=== PATIENT | male | born 1955 | race Caucasian/White ===

== ENCOUNTER 2016-09-15 15:00 | Emergency (ER) | payer MEDICAID ==
[2016-09-15 15:09] VITALS: BP 128/92; PULSE 84; RESP 20; TEMP 97.9; O2SAT 95
== END 2016-09-15 15:30 | disposition left against medical advice (07) ==
DX: Z53.21 Procedure and treatment not carried out due to patient leaving prior to being seen by health care provider (principal)

== ENCOUNTER 2016-09-16 14:41 | Emergency (ER) | payer MEDICAID ==
[2016-09-16 14:46] VITALS: RESP 18
--- NOTE | 2016-09-16 14:47 | EDPHY ---
H & P Stated Complaint: r lower tooth pain/jaw pain Time Seen by Provider: 09/16/16 14:47 - Personal History Current Tetanus/Diphtheria Vaccine: Yes - Medical/Surgical History Hx Asthma: No Hx Chronic Respiratory Disease: No Hx Diabetes: No Hx Cardiac Disease: No Hx Renal Disease: No Hx Cirrhosis: No Hx Alcoholism: No Hx HIV/AIDS: No Hx Splenectomy or Spleen Trauma: No Other PMH: hernia - Social History Smoking Status: Never smoked Constitutional: Initial Vital Signs Temperature (C) 36.9 C 09/16/16 14:44 Heart Rate 88 09/16/16 14:44 Respiratory Rate 18 09/16/16 14:44 Blood Pressure 129/90 H 09/16/16 14:44 O2 Sat (%) 94 09/16/16 14:44 O2 Delivery Mode Room Air Allergies/Adverse Reactions: No Known Allergies Allergy (Verified 09/16/16 14:43) Home Medications: Medication Instructions Recorded NK [No Known Home Meds] 09/15/16 Medical Decision Making ED Course/Re-evaluation: CHIEF COMPLAINT: Oral pain, dental abscess. HISTORY OF PRESENT ILLNESS: The patient is a 61-year-old male who presents with right lower dental abscess. He has an appointment with a dentist on Sunday but presents today because the swelling and pain are worsening. He denies fever, chills, vomiting, or other complaints. REVIEW OF SYSTEMS: A 10 point review of systems was performed and is negative with the exception of the elements mentioned in the history of present illness. PHYSICAL EXAM: HR, BP, O2 Sat, RR. Temp noted General Appearance: Alert, well hydrated, appropriate, and non-toxic appearing. Head: Atraumatic without scalp tenderness or obvious injury. Gingival swelling and abscess at right lower back molar . Neurological: Alert, appropriate, and interactive. The patient has normal DTRs and non-focal cranial nerves, motor, sensory, and cerebellar exam. Skin: No rashes, good turgor, no nodules on palpation. Past medical history: Hernia. Past surgical history: N/A. Family history: N/A. Social history: Does not abuse alcohol or drugs. MEDICAL DECISION MAKIN-year-old male presents with an abscess to his lower right back molar. He has a dentist appointment Sunday but presents today for pain control. I have started him on Keflex and Oxy IR. He understands to follow up on Sunday. He is comfortable with this plan. Departure - Departure Disposition: Home, Routine, Self-Care Clinical Impression: Dental abscess Condition: Good Instructions: Dental Abscess (ED) Additional Instructions: Follow up with your dentist on Sunday. Take Keflex as prescribed. Take the pain medication as prescribed. Return to the emergency department for any serious worsening of condition. Referrals: [facility] [Outside] - Follow Up Only If Needed Dental [facility] [Outside] - Follow Up Only If Needed Dental [facility] [Outside] - Follow Up Only If Needed Report Scribed for: William Lombardo Report Scribed by: Arturo Moore Date of Report: 09/16/16 Time of Report: 14:52
[2016-09-16 15:07] VITALS: BP 143/76; PULSE 76; TEMP 98.2; O2SAT 99
== END 2016-09-16 15:07 | disposition home or self-care (01) ==
DX: K04.7 Periapical abscess without sinus (principal)

== ENCOUNTER 2016-10-20 12:10 | Emergency (ER) | payer MEDICAID ==
--- NOTE | 2016-10-20 12:43 | EDPHY ---
H & P Stated Complaint: SKin irritation at base of toes on R foot;?from moisture Time Seen by Provider: 10/20/16 12:42 - Personal History Current Tetanus Diphtheria and Acellular Pertussis (TDAP): Yes - Medical/Surgical History Hx Asthma: No Hx Chronic Respiratory Disease: No Hx Diabetes: No Hx Cardiac Disease: No Hx Renal Disease: No Hx Cirrhosis: No Hx Alcoholism: No Hx HIV/AIDS: No Hx Splenectomy or Spleen Trauma: No Other PMH: hernia. neuropathy. homeless - Social History Smoking Status: Former smoker Constitutional: Initial Vital Signs Temperature (C) 36.6 C 10/20/16 12:13 Heart Rate 72 10/20/16 12:13 Respiratory Rate 16 10/20/16 12:13 Blood Pressure 119/82 H 10/20/16 12:13 O2 Sat (%) 96 10/20/16 12:13 O2 Delivery Mode Room Air Allergies/Adverse Reactions: No Known Allergies Allergy (Verified 10/20/16 12:12) Home Medications: Medication Instructions Recorded Nystatin [Nystat-Rx] 1 each MC BID #0 powder.ea. 10/20/16 Medical Decision Making ED Course/Re-evaluation: CHIEF COMPLAINT: Right toes red and raw HISTORY OF PRESENT ILLNESS: This patient is a 61 year old male complaining of painful red areas at the base of his toes on the plantar aspect onset yesterday. He works in a deli wearing galoshes, and his feet are often in a moist environment. He denies fever, chills, vomiting, or other complaints. REVIEW OF SYSTEMS: A 10 point review of systems was performed and is negative with the exception of the elements mentioned in the history of present illness. PHYSICAL EXAM: HR, BP, O2 Sat, RR. Temp noted General Appearance: Alert, well hydrated, appropriate, and non-toxic appearing. Head: Atraumatic without scalp tenderness or obvious injury Respiratory: No distress Cardiovascular: Regular rate and rhythm. Good capillary refill all extremities. Musculoskeletal: Normal active ROM of all extremities, atraumatic. Neurological: Alert, appropriate, and interactive. Nonfocal neuro exam. Skin: Erythema, scaling, and fissuring to base of plantar aspect of toes on the right foot. Good turgor, no nodules on palpation. Past medical history: Hernia Past surgical history: Noncontributory Family history: Noncontributory. Social history: Homeless. Works at [employer]. Does not abuse alcohol or drugs. DIFFERENTIAL DIAGNOSIS: Includes but not limited to tinea pedis, contact dermatitis, friction blisters, trench foot. MEDICAL DECISION MAKIN male presents with erythema, scaling, and fissuring to base of plantar aspect of toes on the right foot. Findings are consistent with athlete's foot. Plan to discharge home in good condition with prescription for Nystatin. He requests a work excuse note as well so he can keep his foot dry and clean as directed. Follow up and return precautions discussed. The patient is comfortable with this plan. Departure - Departure Disposition: Home, Routine, Self-Care Clinical Impression: Athlete's foot on right Condition: Good Instructions: Antifungals (On the skin), Jock Itch (ED) Additional Instructions: 1. Use your antifungal medication as directed. 2. Keep your foot clean and dry as much as possible. Change your socks often. 3. Follow up with your primary care provider for continued evaluation. Case Management: You have an appointment at [facility] on Sunday, October 30 at 10:30. Please call 24 hours in advance if you need to cancel your appointment The address for [facility] is: [address] [place] [id number] Referrals: [facility],. [Clinic] - As per Instructions Jignesh Webster MD [Medical Doctor] - As per Instructions Stand Alone Forms: Work Excuse Prescriptions: Nystatin [Nystat-Rx] 1 each MC BID #0 powder.ea. Report Scribed for: William Lombardo Report Scribed by: Carissa Pierce Date of Report: 10/20/16 Time of Report: 12:46
[2016-10-20 13:50] VITALS: BP 120/70; PULSE 78; RESP 14; TEMP 97.5; O2SAT 97
== END 2016-10-20 13:50 | disposition home or self-care (01) ==
DX: B35.3 Tinea pedis (principal); Z87.891 Personal history of nicotine dependence

== ENCOUNTER 2016-11-20 12:16 | Emergency (ER) | payer MEDICAID ==
[2016-11-20 14:06] VITALS: RESP 18; TEMP 98.1
[2016-11-20] MEDS ORDERED: IPRATROPIUM/ALBUTEROL 3 ML DEYVIAL IH ONE (14:23)
[2016-11-20] MEDS ORDERED: predniSONE 20 MG TAB PO ONE (14:23)
--- NOTE | 2016-11-20 14:25 | EDPHY ---
H & P Time Seen by Provider: 11/20/16 14:17 HPI/ROS: CHIEF COMPLAINT: Cough, shortness of breath HISTORY OF PRESENT ILLNESS: 61-year-old male with a history of chronic bronchitis presents with cough shortness of breath. Onset of a runny nose and mild cough 4 days ago, gradually increasing since then. The cough is productive of whitish phlegm. He has shortness of breath with exertion, not at rest. No fever or chills. No flu vaccination this year. No known history of bronchospasm. REVIEW OF SYSTEMS: Constitutional: No fever, no chills Eyes: No visual changes ENT: No sore throat Cardiac: No chest pain Gastrointestinal: No nausea, no vomiting, no abdominal pain Genitourinary: no dysuria Musculoskeletal: No leg pain or swelling Skin: No rash Neurological: No headache, no weakness Psychiatric: No depression Past Medical/Surgical History: Chronic bronchitis Social History: Recently moved to [place] Smoking Status: Former smoker Physical Exam: General Appearance: Alert, pleasant, well-appearing Eyes: Pupils equal and round, no conjunctival pallor or injection ENT, Mouth: Mucous membranes moist Neck: Normal inspection Respiratory: normal respiratory rate, diffuse expiratory wheezing Cardiovascular: Regular rate and rhythm Gastrointestinal: Abdomen is soft and nontender Neurological: A&O, nonfocal, normal gait Skin: Warm and dry, no rash Extremities: Nontender, no pedal edema Psychiatric: Mood and affect normal Constitutional: Initial Vital Signs Temperature (C) 36.9 C 11/20/16 12:24 Respiratory Rate 22 H 11/20/16 12:24 Blood Pressure 116/79 11/20/16 12:24 O2 Sat (%) 91 L 11/20/16 12:24 O2 Delivery Mode Room Air Allergies/Adverse Reactions: No Known Allergies Allergy (Verified 10/20/16 12:12) Home Medications: Medication Instructions Recorded Albuterol [Proventil Inhaler HFA 2 puffs IH QID PRN #1 mdi 11/20/16 (*)] Doxycycline Hyclate 100 mg PO BID #20 tablet 11/20/16 Mucinex 11/20/16 predniSONE 1 tab PO DAILY #15 tab 11/20/16 Medical Decision Making - Diagnostics Imaging Results: Imaging Impressions Chest X-Ray 11/20/16 13:58 Impression: Right midlung mass versus pneumonia. Recommendation: Short term follow-up chest radiograph in 4 to 6 weeks. If the nodule persists, proceed with CT chest with contrast. Findings discussed with Emergency Department physician, Dr. Marina Mcdaniel, on November 20, 2016 at 1451 hours. ED Course/Re-evaluation: This patient presents with an acute exacerbation of chronic bronchitis. Chest x -ray reveals possible pneumonia. A DuoNeb was given and prednisone 60 mg orally. Oxygen saturation 94% on room air after the DuoNeb and lungs revealed decreased wheezing. A repeat albuterol neb was given. I wrote a prescription for doxycycline. He does not meet SIRS criteria and admission is not indicated in this patient. He greatly prefers to go home. Warning signs discussed. Differential Diagnosis: Differential diagnosis includes though it is not limited to pneumonia, pneumothorax, pulmonary embolism, aortic dissection, pericarditis, acute coronary syndrome. - Data Points Medications Given: Discontinued Medications Albuterol (Proventil Neb) 3 ml IH EDNOW ONE Stop: 11/20/16 15:05 Last Admin: 11/20/16 15:08 Dose: 3 ml Albuterol/Ipratropium (Duoneb) 3 ml IH EDNOW ONE Stop: 11/20/16 14:24 Last Admin: 11/20/16 14:28 Dose: 3 ml Prednisone (Prednisone) 60 mg PO EDNOW ONE Stop: 11/20/16 14:24 Last Admin: 11/20/16 14:28 Dose: 60 mg Departure - Departure Disposition: Home, Routine, Self-Care Clinical Impression: Chronic obstructive pulmonary disease with acute exacerbation Acute bronchitis Qualifiers: Bronchitis organism: unspecified organism Qualified Code(s): J20.9 - Acute bronchitis, unspecified Condition: Good Instructions: Acute Bronchitis (ED), How to Use a Nebulizer (ED) Additional Instructions: Your Chest Xray is abnormal. You need a repeat Xray in 6 weeks. Referrals: Karolina Pizarro MD [Doctor of Osteopathy] - 2-3 days, if not improved Stand Alone Forms: Work Excuse Prescriptions: Albuterol [Proventil Inhaler HFA (*)] 2 puffs IH QID PRN #1 mdi PRN Reason: Short Of Breath/Dyspnea Doxycycline Hyclate 100 mg PO BID #20 tablet predniSONE 1 tab PO DAILY #15 tab
[2016-11-20 14:44] VITALS: BP 156/82; PULSE 91; O2SAT 96
[2016-11-20] MEDS ORDERED: ALBUTEROL 3 ML DEYVIAL IH ONE (15:04)
== END 2016-11-20 15:30 | disposition home or self-care (01) ==
DX: J44.1 Chronic obstructive pulmonary disease with (acute) exacerbation (principal); J20.9 Acute bronchitis, unspecified; Z87.891 Personal history of nicotine dependence

== ENCOUNTER 2018-01-10 06:10 | Inpatient (IN) | payer MEDICAID ==
[2018-01-10] MEDS ORDERED: NS 1,000 ML IV ONE (06:14)
[2018-01-10] MEDS ORDERED: IPRATROPIUM/ALBUTEROL 3 ML DEYVIAL IH ONE ×2 (06:15→19:35)
--- NOTE | 2018-01-10 06:17 | EDPHY ---
H & P Time Seen by Provider: 01/10/18 06:15 HPI/ROS: HPI CHIEF COMPLAINT: Syncope. HISTORY OF PRESENT ILLNESS: 62-year-old male, homeless, residing at the homeless assisted, states that he got hot shower around 2:00 a.m. Got down the shower front, lightheadedness legs when out need a syncopal episode. He struck his chin on the ground. He sustained a horizontally oriented chin laceration. This happened at 2:00 a.m.. It is now 6:15 a.m.. Patient denies any chest pain. Patient complains of coughing and wheezing over the past few days. The cough has gotten worse. He states been coughing with yellow sputum. No fever. Denies chest pain. States he is currently taking also Flomax for BPH. Stay new medication for him. Additionally he has been taking Advair. Past Medical History: BPH Past Surgical History: No recent surgery Social History: denies drugs or alcohol tobacco. Homeless. Family History: Noncontributory ROS REVIEW OF SYSTEMS: 10 Systems were reviewed and negative with the exception of the elements mentioned in the history of present illness. Exam Constitutional nontoxic no acute distress, triage nursing summary reviewed, vital signs reviewed, awake/alert. Eyes normal conjunctivae and sclera, EOMI, PERRLA. HENT face: Horizontal chin laceration. Old dry blood present. Normal bite. No malocclusion. normal inspection, atraumatic, moist mucus membranes, no epistaxis, neck supple/ no meningismus, no raccoon eyes. Respiratory bronchitis on exam with diffuse wheezing and a bronchitic sounding cough. Cardiovascular rate normal, regular rhythm, no murmur, no edema, distal pulses normal. Gastrointestinal soft, non-tender, no rebound, no guarding, normal bowel sounds, no distension, no pulsatile mass. Genitourinary no CVA tenderness. Musculoskeletal no midline vertebral tenderness, full range of motion, no calf swelling, no tenderness of extremities, no meningismus, good pulses, neurovascularly intact. Skin pink, warm, & dry, no rash, skin atraumatic. Neurologic awake, alert and oriented x 3, AAOx3, moves all 4 extremities equally, motor intact, sensory intact, CN II-XII intact, normal cerebellar, normal vision, normal speech. Psychiatric normal mood/affect. Heme/Lymph/Immune no lymphadenopathy. Differential Diagnosis: Includes but is not limited to in a particular order dehydration, cardiac arrhythmia, pneumonia, electrolyte disturbance, infection, sepsis ACS Medical Decision Making: Plan for this patient IV establishment IV fluid bolus , DuoNeb breathing treatment, EKG, troponin, chest x-ray, electrolytes and re- evaluate. Re-evaluation: EKG interpretation by me on record in [employer] system. Impression time of EKG 6:19 a.m., sinus rhythm rate of 92 Q-waves V1 V2 V3. No ST elevation no ST depression no prolonged intervals. EKG was performed due to syncope. Chest x-ray reviewed this shows a right-sided pneumonia. Dense infiltrate. IV Levaquin has been ordered for this patient. Blood cultures ordered. Plan for hospital admission. 0646: Consult the hospitalist service Dr. Baker, Agrees to admit. Chest x-ray reviewed shows a right lung solid consolidation circular in pattern. When I compare this to his old EKG 14 months prior it is in the exact same location but much bigger. I question if this is a mass. Patient does have a remote smoking history. Plan for CT of the chest to rule out mass or postobstructive pneumonia. The patient has a white count elevated 15,000. Blood cultures have been pulled. IV Levaquin ordered. CT scan chest ordered pending. Hospitalist service consult for admission Troponin 0.00. Patient has a horizontally oriented 4 cm chin laceration. This was copiously cleaned and irrigated. No foreign bodies or debris visualized. Laceration Repair Procedure: Verbal Consent was obtained, Under sterile conditions, The patient had lidocaine with epinephrine used approximately 5ccs to local anesthetize the 4 cm horizontally oriented chin laceration Laceration. The wound was copiously irrigated with sterile fluid, the wound was explored for foreign bodies there were none visualized, the wound was explored with a sterile glove to the base. There are no deep structures involved, including no arterial injury. THREE 6.O PROLENE interrupted Sutures were placed in this patient's laceration. He had good close approximation of the wound edges. He Tolerated this well. Patient understands the sutures will need to be removed in 7 days. Source: Patient, EMS - Medical/Surgical History Hx Asthma: No Hx Chronic Respiratory Disease: No Hx Diabetes: No Hx Cardiac Disease: No Hx Renal Disease: No Hx Cirrhosis: No Hx Alcoholism: No Hx HIV/AIDS: No Hx Splenectomy or Spleen Trauma: No Other PMH: hernia. neuropathy. bronchitis - Social History Smoking Status: Former smoker Constitutional: Initial Vital Signs Temperature (C) 36.7 C 01/10/18 06:16 Heart Rate 94 01/10/18 06:16 Respiratory Rate 16 01/10/18 06:16 Blood Pressure 103/78 01/10/18 06:16 O2 Sat (%) 94 01/10/18 06:16 O2 Delivery Mode Room Air Allergies/Adverse Reactions: No Known Allergies Allergy (Verified 01/10/18 06:18) Home Medications: Medication Instructions Recorded Albuterol [Proventil Inhaler HFA 1 - 2 puffs IH Q4H #1 mdi 01/10/18 (*)] Fluticasone/Salmeter 250/50Mcg 1 puffs IH BID 01/10/18 [Advair 250/50 (*)] Ipratropium/Albuterol [Combivent 1 inh IH QID 01/10/18 Respimat Inhal [place](*)] Tamsulosin HCl [Flomax 0.4 MG (*)] 0.4 mg PO HS 01/10/18 Medical Decision Making - Data Points Laboratory Results: Laboratory Results 01/11/18 04:20 01/10/18 06:28 Medications Given: Acetaminophen (Tylenol) 650 mg PO Q4 PRN PRN Reason: Pain, Mild/Fever, Can Take PO Stop: 07/09/18 11:51 Last Admin: 01/11/18 08:17 Dose: 650 mg Albuterol/Ipratropium (Duoneb) 3 ml IH Q6 [facility] Stop: 07/09/18 11:59 Last Admin: 01/14/18 18:34 Dose: Not Given Azithromycin (Zithromax) 500 mg PO DAILY [facility] PRN Reason: Protocol Stop: 02/10/18 08:59 Last Admin: 01/14/18 08:02 Dose: 500 mg Enoxaparin Sodium (Lovenox) 40 mg SC DAILY [facility] Stop: 07/11/18 08:59 Last Admin: 01/14/18 08:02 Dose: Not Given Ipratropium [place] (Atrovent 0.03% Nasal) 2 sprays [place] BID [facility] Stop: 07/09/18 21:14 Last Admin: 01/14/18 08:03 Dose: 2 sprays Levothyroxine Sodium (Synthroid) 75 mcg PO DAILY AT 6AM [facility] Stop: 07/12/18 05:59 Last Admin: 01/14/18 06:06 Dose: 75 mcg Fluticasone/Salmeterol (Advair) 1 puffs IH BID [facility] Stop: 07/09/18 20:59 Last Admin: 01/14/18 08:03 Dose: 1 puffs Tamsulosin HCl (Flomax) 0.4 mg PO HS [facility] Stop: 07/09/18 20:59 Last Admin: 01/13/18 22:05 Dose: 0.4 mg Tramadol HCl (Ultram) 50 mg PO Q6HRS PRN PRN Reason: Pain, Moderate Able to Take PO Stop: 07/09/18 11:51 Last Admin: 01/13/18 23:25 Dose: 50 mg Zolpidem Tartrate (Ambien) 5 mg PO HS PRN PRN Reason: Sleep/Insomnia Stop: 07/10/18 22:39 Last Admin: 01/13/18 23:26 Dose: 5 mg Discontinued Medications Albuterol (Proventil Neb) 3 ml IH ONCALL ONE Stop: 01/11/18 13:26 Last Admin: 01/11/18 14:05 Dose: Not Given Albuterol/Ipratropium (Duoneb) 3 ml IH EDNOW ONE Stop: 01/10/18 06:16 Last Admin: 01/10/18 06:29 Dose: 3 ml Albuterol/Ipratropium (Duoneb) 3 ml IH ONCE ONE Stop: 01/10/18 19:36 Last Admin: 01/10/18 20:18 Dose: 3 ml Sodium Chloride (Ns) 1,000 mls @ 0 mls/hr IV EDNOW ONE; Wide Open PRN Reason: Protocol Stop: 01/10/18 06:15 Last Admin: 01/10/18 06:27 Dose: 1,000 mls Levofloxacin/Dextrose (Levaquin 750 Mg (Premix)) 150 mls @ 100 mls/hr IV EDNOW ONE PRN Reason: Protocol Stop: 01/10/18 08:08 Last Admin: 01/10/18 07:31 Dose: 150 mls Sodium Chloride (Ns) 1,000 mls @ 100 mls/hr IV CONT [facility] Stop: 07/09/18 11:59 Last Admin: 01/11/18 08:19 Dose: 1,000 mls Sodium Chloride (Ns) 500 mls @ 25 mls/hr IV ONCALL ONE Stop: 01/12/18 09:23 Last Admin: 01/11/18 13:38 Dose: 500 mls Lorazepam (Ativan) 1 mg PO ONCE ONE Stop: 01/11/18 10:23 Last Admin: 01/13/18 10:56 Dose: 1 mg Lorazepam (Ativan) 1 mg PO ONCE ONE Stop: 01/13/18 10:16 Last Admin: 01/13/18 10:30 Dose: 1 mg Point of Care Test Results: Chemistry 01/10/18 06:32 POC Troponin I 0.00 ng/mL ng/mL (0.00-0.08) Departure - Departure Disposition: [facility] Inpatient Acute Clinical Impression: Bronchitis, Chin laceration Syncope Qualifiers: Syncope type: unspecified Qualified Code(s): R55 - Syncope and collapse Pneumonia Qualifiers: Pneumonia type: due to unspecified organism Laterality: right Lung location: middle lobe of lung Qualified Code(s): J18.1 - Lobar pneumonia, unspecified organism Condition: Good
[2018-01-10 06:36] LABS: PLATELET COUNT 375 10^3/uL (150-400)
[2018-01-10] MEDS ORDERED: IOPAMIDOL (ISOVUE 370) 100 ML BTL IV ONE (06:53)
[2018-01-10] MEDS ORDERED: ONDANSETRON 4 MG/2 ML VIAL IVP PRN (11:52)
[2018-01-10] MEDS ORDERED: IPRATROPIUM/ALBUTEROL 4GM MDI IH SCH (12:00)
[2018-01-10] MEDS: NS 1,000 ML IV SCH (12:27)
--- NOTE | 2018-01-10 12:32 | CPEKG ---
Test Reason : OPEN Blood Pressure : / mmHG Vent. Rate : 092 BPM Atrial Rate : 092 BPM P-R Int : 187 ms QRS Dur : 081 ms QT Int : 339 ms P-R-T Axes : 071 084 057 degrees QTc Int : 420 ms Sinus rhythm Probable left atrial enlargement Borderline right axis deviation Anteroseptal infarct, old Confirmed by Mychal Vivar ([id number]) on 01/10/2018 12:32:36 PM Referred By: Confirmed By:Mychal Vivar
--- NOTE | 2018-01-10 12:33 | ASMTCMCOM ---
CM Note CM Note Notes: Chart reviewed fo discharge planning purposes. 62 year old male admitted via ED after fall and laceration of his chin. He reports he has had increasing cough with yellow sputum and suffered a syncopal episode resulting in his fall and subsequent chin laceration. Per CXR, suspicious mass revealed. CT of chest for further eval. Results pending. He currently resides at the half-way. CM to follow for needs. Plan: TBD Date Signed: 01/10/2018 12:33 PM Electronically Signed By:Haley Terrell RN
--- NOTE | 2018-01-10 12:47 | GHP ---
DATE OF ADMISSION: 01/10/2018 CHIEF COMPLAINT: Shortness of breath and syncope. HISTORY: The patient is a 62-year-old male, who has felt short of breath for the last couple of week s. He saw his primary care doctor who started Advair. One week ago he developed a cough, which is p roductive of yellow sputum, as well as wheezing. Yesterday afternoon he started to feel a little diz zy. He went to bed, but woke up in the middle of the night not feeling great and decided to take a [place] [facility], about 2 o'clock in the morning. While in the shower, he got extremely ligh theaded and had a big syncopal event with complete loss of consciousness, striking his chin on the gr ound, sustaining a sizable chin laceration. That laceration was repaired in the emergency room with 3 stitches that need to be removed in 7 days. In the emergency room, he was also found to have a rig ht hilar mass with possible metastasis, and he is being admitted for further evaluation. PAST MEDICAL HISTORY: 1. BPH. 2. COPD. 3. Neuropathy. MEDICATIONS: Please see computerized record for full detailed list. ALLERGIES: No known drug allergies. SOCIAL HISTORY: He smoked from age 15 to age 45, one pack per day, but quit 18 years ago. No alcoho l. No drug use. Currently homeless, living in [facility], but hoping to get back into housing. He w as working at [employer] in [place] until October, but he could not keep up with th e pace of work expected of him, and he was fired. He is currently undergoing interviews for employme nt at [employer]. He describes himself as a salesman, but he moved to [place] 3 years ago and thi ngs have not gone well since his relocation. REVIEW OF SYSTEMS: Complete review of systems obtained. Review of systems negative for constitution al, HEENT, GI, pulmonary, cardiovascular, , hematology, skin, endocrine, psych, except for positive s as noted in HPI. FAMILY HISTORY: Mother of lung cancer. Sister of breast cancer. PHYSICAL EXAMINATION: GENERAL: Well-developed, well-nourished male, in no acute distress. VITAL SI GNS: Temperature is 36.4, pulse 100, blood pressure 130/78, saturating 94% on room air. EYES: Norm al conjunctivae. Pupils reactive to light. ENT: Normal ears and nose. Hearing intact. Normal lip s and teeth. Oropharynx moist. NECK: Trachea midline. No thyromegaly. CHEST: Normal respiratory effort. LUNGS: Extensive bilateral wheezing and rhonchi. CARDIOVASCULAR: Regular rhythm. No mur mur. No lower extremity edema. ABDOMEN: Soft, nontender. No hepatosplenomegaly. SKIN: Warm, dry , intact. No rash. MUSCULOSKELETAL: No cyanosis or clubbing. Strength 5/5 upper and lower extremi ties. NEUROLOGIC: Cranial nerves intact. Normal sensation to light touch. PSYCH: Alert and orien kohi x3. Normal affect. Normal judgment. Normal memory. LABORATORY DATA: White count 15.12, hematocrit 40.1, platelets 375, sodium 138, potassium 4.3, chlor nohemy 103, bicarb 24, BUN 14, creatinine 0.8, glucose 155, troponins negative. LFTs are negative. EKG viewed by me. My personal interpretation is normal sinus rhythm with no ST- or T-wave changes. Chest x-ray shows a large right hilar mass. CT angiogram of the chest result is pending. Prelim by Radiology shows a right hilar mass with metas tases. ASSESSMENT/PLAN: 1. Right hilar mass with metastases, suspicious for a lung cancer. This will need biopsy. I think it will be amenable to bronchoscopy for approach. I have consulted Dr. Shady Rockwell. I have also sp jose with Dr. Seals of Oncology to initiate consultation. 2. Chronic obstructive pulmonary disease exacerbation. He is very wheezy at this time, although has good room air saturations and is not in any distress. I will put him on scheduled nebulizers, as we ll as adding azithromycin. I will hold off on steroids because I do not want to interfere with patho logy results on anticipated biopsy. 3. Syncope. I suspect this is hypovolemic and/or vasovagal. Need to also consider compression due to the large hilar mass having a cardiac effect. We will watch him on telemetry and check an echocar diogram. CODE STATUS: Full. ADMISSION STATUS: 1. Will admit to observation. Reevaluate tomorrow regarding ongoing need for hospitalization. 2. DVT prophylaxis. This is ordered to start after biopsies have been obtained. /[id number]/MODL
[2018-01-10] MEDS: IPRATROPIUM/ALBUTEROL 3 ML DEYVIAL IH SCH ×2 (15:03→15:39)
[2018-01-10] MEDS: TAMSULOSIN HCL 0.4 MG CAP PO SCH (20:22)
[2018-01-10] MEDS: FLUTICASONE/SALMETER 250/50MCG DISKUS IH SCH (20:23)
[2018-01-10] MEDS: IPRATROPIUM 0.03% NASAL SPRAY EACHNARE SCH (22:21)
[2018-01-11] MEDS: IPRATROPIUM/ALBUTEROL 3 ML DEYVIAL IH SCH ×5 (04:15→20:39)
[2018-01-11 04:52] LABS: PLATELET COUNT 338 10^3/uL (150-400)
[2018-01-11] MEDS: ACETAMINOPHEN 325 MG TAB PO PRN (08:17)
[2018-01-11] MEDS: AZITHROMYCIN 250 MG TAB PO SCH (08:17)
[2018-01-11] MEDS: FLUTICASONE/SALMETER 250/50MCG DISKUS IH SCH ×2 (08:19→20:40)
[2018-01-11] MEDS: NS 1,000 ML IV SCH (08:19)
[2018-01-11] MEDS: IPRATROPIUM 0.03% NASAL SPRAY EACHNARE SCH ×2 (08:20→23:47)
[2018-01-11] MEDS ORDERED: LORazepam 1 MG TAB PO ONE (10:22)
--- NOTE | 2018-01-11 10:29 | PDCONSULT ---
Manager Hair Note: Requesting provider: Dr. Estefany Bray Reason for consultation: Lung mass HPI: Clarence is a 62 yo male with a previous history of smoking who was admitted for diagnostic work up of a lung mass. He states that he's had breathing trouble for over a year. He was seeing a physician down in [place] and was given inhalers for presumed COPD. Interestingly, back in November of 2016 he presented with cough and chest pain and was noted to have a right lung mass on a simple CXR. He was seen by Dr. Ortega in pulmonary who recommended a CT of the chest to be done. He states that his SOB continued to worsen over this period of time. He says around 1 week ago he was in the shower and experienced a syncopal episode where he fell and hit his chin and required stitches. He continues to have worsening intermittent headaches. No focal neurologic symptoms. He has had a 15lb weight loss which he attributes to poor nutrition at the homeless longterm. PM/S History: Hx of lung mass BPH COPD Neuropathy SH: He quit smoking 18 years ago but has a 30 pack year history total. No alcohol or drugs. Currently homeless and lost his job working at the [employer]. Never . No family locally. FH: Mother with breast cancer in her 60's then lung cancer a few years later. Sister with breast cancer in her 40's. Allergies: NKDA ROS: A 12 point ROS was obtained and otherwise negative. Meds: Reviewed in the EMR Physical exam: Temp Pulse Resp BP Pulse Ox 36.5 C 91 18 109/72 90 L 01/11/18 11:33 01/11/18 11:33 01/11/18 11:33 01/11/18 11:33 01/11/18 11:33 General: Pleasant, conversant, NAD Neuro: CN2-12 intact, motor intact in BL upper and lower ext CV: RRR no m/g/r Pulm: Crackles at the right base, otherwise clear Abd: Soft, nt, nd, bs+ Ext: No c/c/e Skin: no skin lesions Psych: Appropriate affect Lymph: No LAD WBC 8.99 10^3/uL (3.80-9.50) 01/11/18 04:20 RBC 4.06 10^6/uL (4.40-6.38) L 01/11/18 04:20 Hgb 11.9 g/dL (13.7-17.5) L 01/11/18 04:20 Hct 35.7 % (40.0-51.0) L 01/11/18 04:20 MCV 87.9 fL (81.5-99.8) 01/11/18 04:20 MCH 29.3 pg (27.9-34.1) 01/11/18 04:20 MCHC 33.3 g/dL (32.4-36.7) 01/11/18 04:20 RDW 14.1 % (11.5-15.2) 01/11/18 04:20 Plt Count 338 10^3/uL (150-400) 01/11/18 04:20 MPV 9.2 fL (8.7-11.7) 01/11/18 04:20 Neut % (Auto) 70.1 % (39.3-74.2) 01/11/18 04:20 Lymph % (Auto) 18.2 % (15.0-45.0) 01/11/18 04:20 [place] % (Auto) 7.7 % (4.5-13.0) 01/11/18 04:20 Eos % (Auto) 3.2 % (0.6-7.6) 01/11/18 04:20 Baso % (Auto) 0.4 % (0.3-1.7) 01/11/18 04:20 Nucleat RBC Rel Count 0.0 % (0.0-0.2) 01/11/18 04:20 Absolute Neuts (auto) 6.29 10^3/uL (1.70-6.50) 01/11/18 04:20 Absolute Lymphs (auto) 1.64 10^3/uL (1.00-3.00) 01/11/18 04:20 Absolute Monos (auto) 0.69 10^3/uL (0.30-0.80) 01/11/18 04:20 Absolute Eos (auto) 0.29 10^3/uL (0.03-0.40) 01/11/18 04:20 Absolute Basos (auto) 0.04 10^3/uL (0.02-0.10) 01/11/18 04:20 Absolute Nucleated RBC 0.00 10^3/uL (0-0.01) 01/11/18 04:20 Immature Gran % 0.4 % (0.0-1.1) 01/11/18 04:20 Immature Gran # 0.04 10^3/uL (0.00-0.10) 01/11/18 04:20 Sodium 138 mEq/L (135-145) 01/10/18 06:28 Potassium 4.3 mEq/L (3.3-5.0) 01/10/18 06:28 Chloride 103 mEq/L (97-110) 01/10/18 06:28 Carbon Dioxide 24 mEq/l (22-31) 01/10/18 06:28 Anion Gap 11 mEq/L (6-14) 01/10/18 06:28 BUN 14 mg/dL (7-23) 01/10/18 06:28 Creatinine 0.8 mg/dL (0.7-1.3) 01/10/18 06:28 Estimated GFR > 60 01/10/18 06:28 Glucose 155 mg/dL (70-100) H 01/10/18 06:28 Calcium 9.3 mg/dL (8.5-10.4) 01/10/18 06:28 Magnesium 2.0 mg/dL (1.6-2.3) 01/10/18 06:28 Total Bilirubin 0.8 mg/dL (0.1-1.4) 01/10/18 06:28 Conjugated Bilirubin 0.2 mg/dL (0.0-0.5) 01/10/18 06:28 Unconjugated Bilirubin 0.6 mg/dL (0.0-1.1) 01/10/18 06:28 AST 21 IU/L (17-59) 01/10/18 06:28 ALT 37 IU/L (21-72) 01/10/18 06:28 Alkaline Phosphatase 102 IU/L (38-126) 01/10/18 06:28 POC Troponin I 0.00 ng/mL (0.00-0.08) 01/10/18 06:32 NT-Pro-B Natriuret Pep 32 pg/mL (0-125) 01/10/18 06:28 Total Protein 7.4 g/dL (6.3-8.2) 01/10/18 06:28 Albumin 3.9 g/dL (3.5-5.0) 01/10/18 06:28 TSH 16.000 uIU/mL (0.465-4.680) H 01/11/18 04:20 01/10/2018 CT chest w contrast: 8.1x5.9x6.3cm right hilater mass with narrowsing of the bronchus intermedius with likely postobstructive pneumonitis. Slightly enlarged subcarnial LN. There is a 2.4cmx0.9cm Left upper lobe mass, also a 1.5x1.7cm left middle lobe nodule. Assessment and plan: Clarence is a 62 yo male with a 30 pack year smoking history admitted for workup of a lung mass. 1. Lung mass: He has a fairly large right sided lung mass with regional adenopathy alongside concern for contralateral metastasis. It has been a little over 1 year from initial presentation to work up. I suspect he has underlying metastatic cancer in the contralateral lung. He needs full staging with MR brain and PET/CT. He has stated he wants to now move out of [place] due to concern of the altitude. I have encouraged him to undergo diagnostic work-up first to get his final stage before he does this. He will need his biopsy sent for [facility] testing which includes a multi-gene panel for common tractor driver mutations, PDL1 and tumor mutational burden. -I have ordered MR brain -Bx per pulm today -Will need outpatient f/u prior to discharge. 2. COPD: On inhalers. No oxygen requirements. 3. Social situation: Currently in a homeless longterm. SW seeing. All questions were answered. He voices his understanding of the plan.
--- NOTE | 2018-01-11 10:40 | ASMTCMCOM ---
CM Note CM Note Notes: Oncology consulting, pt to have liver biopsy and MRI. Pt in reserved bed program at [facility], his case mngr there is Mehdi. Pt states he "would rather not" d/c back to [facility], pt does not elaborate any specifics as to why. When asked if he has friends/family to stay with pt states he does not know at this time. Pt does not know where he will d/c to, stating Sunday he will resume discussion with a local rabbi to see if the rabbi has any housing options. Pt likely not to qualify for any respite but CM will follow for d/c needs. Date Signed: 01/11/2018 10:39 AM Electronically Signed By:SONY Rincon
--- NOTE | 2018-01-11 10:46 | ECHO ---
[email or web address] [address] [address] Main: [phone] Fax: Transthoracic Echocardiogram Name: MENDY WORTHY MR#: [id number] Study Date: 01/11/2018 Study Time: 09:31 AM Date of : 1955 Age: 62 year(s) Height: 160 cm (63 in.) Weight: 58.06 kg (128 lb.) BSA: 1.6 m2 Gender: Male Examination: Echo Indication: Cardiac: syncope Image Quality: Technically Difficult Contrast: Requested by: Estefany Bray BP: 116 mmHg/68 mmHg Heart Rate: Rhythm: Indication: Cardiac: syncope Procedure Staff Shearing Machine Operator: Julia Marie RDCS Reading Physician: Dexter Gipson MD Requesting Provider: Conclusions: 1)Normal LV size and systolic function with a LVEF of 65%. 2)Trivial TR noted. Unable to accurately assess PA pressures. 3)Either trivial circumferential pericardial effusion vs prominent pericardial fat pad with no tamponade signs. Measurements: Chambers Valvular Assessment AV/MV Valvular Assessment TV/PV Normal Normal Normal Name Value Range Name Value Range Name Value Range Ao Stacia (MM): 2.8 cm (2.2 cm-3.7 AV Vmax: 1.28 m/s (1 m/s-1.7 PV Vmax: 1.07 m/s (0.6 m/s-0.9 cm) m/s) m/s) IVSd (2D): 0.8 cm (0.6 cm-1.1 AV maxP mmHg ( - ) PV PGmax: 5 mmHg ( - ) cm) LVOT Vmax: 0.96 m/s (0.7 m/s-1.1 LVDd (2D): 3.5 cm (4.2 cm-5.9 m/s) cm) SHAREE (Vmax): 2.1 cm2 ( - ) LVDs (2D): 2.4 cm (2.1 cm-4 MV E Vmax: 0.95 m/s ( - ) cm) MV A Vmax: 0.73 m/s ( - ) LVPWd (2D): 0.8 cm (0.6 cm-1 MV E/A: 1.30 ( - ) cm) LVOTd 1.9 cm 1.9 cm mm LVEF (BP): 65 % (>=55 %) RVDd(2D): 2.8 cm (1.9 cm-3.8 cmmm) Continued Measurements: Chambers Valvular Assessment AV/MV Name Value Name Value LADs Lon.6 cm MV DecTime: 176 m/s LA Area: 10.6 cm2 MV E' Septal: 0.08 m/s Patient: MENDY WORTHY Study Date: 01/11/2018 Page 1 of 2 09:31 AM TAPSE: 2.0 cm MV E/E' Septal: 11.90 RA Area: 9.0 cm2 MV E/E' Lateral: 7.20 Findings: Left Ventricle: Normal size left ventricle. No LV hypertrophy. Normal global systolic LV function. EF is 65 %. Normal diastolic LV function. Cannot rule out wall motion abnormalities due to suboptimal acoustic window and foreshortened apical view. Right Ventricle: Normal size right ventricle. Normal RV function. Left Atrium: The left atrium is normal in size. LA index 18.8 ml/m2.. Right Atrium: The right atrium is normal in size. Mitral Valve: The mitral valve is normal in appearance and function. No mitral stenosis is present. Aortic Valve: The aortic valve is tri-leaflet and functions normally. There is no significant aortic valve regurgitation. No aortic valve stenosis is present. Tricuspid Valve: The tricuspid valve is normal in appearance and function. Trivial tricuspid valve regurgitation. Pulmonary artery pressure is not obtained due to inadequate TR jet. Pulmonic Valve: Pulmonary valve not well visualized. There is no pulmonic regurgitation seen. Aorta: The aorta is normal. Normal size aortic root measuring 2.8 cm. IVC: Normal size and course of the IVC. Pericardium: Trivial pericardial effusion. vs pericardial fat pad. No tamponade physiology noted. (No Signature Object) Patient: MENDY WORTHY Study Date: 01/11/2018 Page 2 of 2 09:31 AM [id number]
[2018-01-11] MEDS ORDERED: NS 500 ML IV ONE (13:24)
[2018-01-11] MEDS ORDERED: ALBUTEROL 3 ML DEYVIAL IH ONE (13:25)
[2018-01-11] MEDS ORDERED: LIDOCAINE 1% 2 ML INJ ID PRN (13:25)
[2018-01-11] MEDS ORDERED: EPINEPHrine 1 MG/10 ML SYR IVP ONE (14:17)
[2018-01-11] MEDS ORDERED: LIDOCAINE 1% 300 MG/30 ML SDV ONE (14:17)
[2018-01-11] MEDS ORDERED: BENZOCAINE UNIT DOSE SPRAY HURRICAINE MM ONE (14:17)
[2018-01-11] MEDS ORDERED: fentaNYL 100 MCG/2 ML INJ ONE (14:21)
[2018-01-11] MEDS ORDERED: MIDAZOLAM 2 MG/2 ML VIAL ONE (14:21)
--- NOTE | 2018-01-11 14:39 | HOSPPROG ---
Hospitalist Progress Note Assessment/Plan: * COPD exacerbation -nebs + azithro for anti-inflammatory effect -hold off on steroids as don't want to distort path for lung biopsy * Lung mass with mets -bronch with biopsy today -MRI brain pending -outpatient follow-up with onc - Dr. Seals -needs outpatient PET/CT * Viral bronchitis - rhinovirus * Elevated TSH -check FT4 * Syncope -suspect vasovagal vs. hypovolemic -ECHO okay * Chin laceration -remove sutures 7 days Subjective: No new complaints. Objective: Vital Signs Temp Pulse Resp BP Pulse Ox 36.5 C 91 18 109/72 90 L 01/11/18 11:33 01/11/18 11:33 01/11/18 11:33 01/11/18 11:33 01/11/18 11:33 Microbiology 01/10/18 15:00 Respiratory Panel (PCR) - Final Nasal, Sinus - Swab Human Rhinovirus/Enterovirus Laboratory Results 01/11/18 04:20 01/10/18 01/11/18 01/12/18 05:59 05:59 05:59 Intake Total 1650 Balance 1650 ECHO - normal d/w Dr. Rockwell and DR. Seals regarding planned work-up - Physical Exam Constitutional: no apparent distress, appears nourished, not in pain Cardiovascular: regular rate and rhythym, no murmur, rub, or gallop Respiratory: no respiratory distress, no rales or rhonchi, clear to auscultation , other (much better today, much less wheezing) Gastrointestinal: normoactive bowel sounds, soft, non-tender abdomen, no palpable masses Skin: no rashes or abrasions, no fluctuance, no induration Neurologic: AAOx3, sensation intact bilaterally Psychiatric: interacting appropriately, not anxious, not encephalopathic, thought process linear ICD10 Worksheet Patient Problems: Problems Problem Status Onset Bronchitis Acute Chin laceration Acute Pneumonia Acute Syncope Acute
--- NOTE | 2018-01-11 16:39 | GPN ---
PROCEDURE PERFORMED: Bronchoscopy. REASON FOR PROCEDURE: Lung mass, suspect lung cancer in this previous smoker. PROCEDURE: The procedure was done in the endoscopy unit. N95 masks were worn, although there was no suspicion of a significant respiratory airborne infectious pathogen. Informed consent was obtained from the patient. Appropriate time-out was performed. Conscious sedation included 4 mg of Versed an d 100 mcg of fentanyl. Topical anesthesia included 4 mL of 4% to the oropharynx and approximately 25 mL of 1% to the trachea and lower tracheobronchial tree. 2 cc of epinephrine was used for prophylax is of potential bleeding. The fiberoptic bronchoscope was passed via a bite block orally in the larynx. The vocal cords were i dentified. The right vocal cord was not paralyzed, but appeared to be sluggish. The bronchoscope wa s advanced into the trachea and into the lower tracheobronchial tree bilaterally. All areas were obs erved to the segmental level at least. The trachea and left side were normal. The right side was ab normal. There was erythema, edema, and abnormal tissue in the bronchus intermedius and right upper l obe and right lower lobe. The right middle lobe appeared more normal. The superior segment of the r ight lower lobe appeared to be occluded and it was difficult to enter this with instruments. The muc osal surface in that area extending down in the right lower lobe was distinctly abnormal as well. Th e right upper lobe carrie was distended, erythematous and edematous with possible abnormal tissue not ed in that area. Washes, brushes and biopsies were obtained. Washes were obtained from the right up per lobe and right lower lobe/bronchus intermedius and combined. Bronchial brush samples were obtain ed from the right lower lobe. Biopsies were obtained from the right lower lobe with 1 biopsy obtaine d at the carrie of the right upper lobe. With this last single biopsy, there was significant bleedin g. This was observed and suction applied and controlled. Bleeding appeared to have slowed significa ntly and was minimal by the end of the procedure. The patient had significant coughing toward the en d of the procedure and was bringing up some bloody secretions. Vital signs and oxygen saturations on supplemental oxygen remained normal throughout the procedure. There were no complications. IMPRESSION: Distinctly abnormal tissue on the right side, as described above. This is consistent wi th the findings on CT scan and likely represents malignancy, with major involvement of the right uppe r lobe, the superior segment of the right lower lobe, the bronchus intermedius, and more distal right lower lobe main bronchus. The wash samples for cytologies and cultures, the endobronchial brush biopsy sample, and the endobron chial forceps biopsy samples were all sent to the laboratory. /[id number]/MODL
--- NOTE | 2018-01-11 17:10 | GCON ---
PULMONARY CONSULTATION DATE OF CONSULTATION: 01/11/2018 REASON FOR CONSULTATION: Lung mass in a previous smoker. HISTORY OF PRESENT ILLNESS: The patient is a 62-year-old homeless [facility]. Over the last several weeks he has had increasing pulmonary congestion and shortness of breath. He was seen at [facility], I believe , and started on Advair and albuterol. [facility] the [facility], he got up and felt dizzy on going to the bathroom and fell. He sustained a chin laceration. He thus presented to the emergency room. They noted him to be congested. A CT scan of the chest was done which showed a large right hilar mass with bronchial congestion and areas of pulmonary nodularity consistent with possible metastases. The patient was a previous smoker. He states he quit smoking about 18 years ago. He started smoking at the age of 15 and smoked 1 pack of cigarettes per day for about 30 years. He was previously diagnosed with COPD. He saw Dr. Landeros in our office when Dr. Landeros was in [place]. He saw him once in [place] about a year ago. A chest x-ray at that time showed a possible new nodule. CT scan of the chest was requested but the patient did not follow up. PAST MEDICAL HISTORY: Prostatism, COPD. Medications on admission included Flomax, Advair, Combivent Respimat, and albuterol. He is followed at [facility]. SOCIAL HISTORY: The patient is homeless, [facility]. He previously lived in [place] and before that I believe [place] and other states. Significant alcohol and drugs are denied. He has no family in this area, 1 friend. FAMILY HISTORY: Lung cancer in his mother. Breast cancer in a sister. REVIEW OF SYSTEMS: A 10-point review of systems is negative except as mentioned above. He denies known significant weight loss. PHYSICAL EXAMINATION: GENERAL APPEARANCE: Reveals a gentleman who is resting comfortably in bed. He is not currently on nasal oxygen. VITAL SIGNS: Blood pressure is 120/80 with a heart rate of approximately 115. This is regular. Respiratory rate is 20. Saturations on room air in the low 90s. HEENT: Unremarkable for lymphadenopathy or thyromegaly. There is no obvious jugular venous distention. CHEST: Reveals decreased breath sounds bilaterally with fixed wheezes on the right. No rales are appreciated. HEART: Tachycardic. There is a soft systolic murmur, no gallop. ABDOMEN: Soft, nontender. Bowel sounds are present. There is no obvious organomegaly. GENITOURINARY: No Levi catheter is in place. EXTREMITIES: Unremarkable bowl for edema, cords, or tenderness. DATABASE: CT scan of the chest is as noted above, with a large right perihilar mass and compression of airways. Laboratory: White blood cell count is approximately 9000, hematocrit 35, platelets are normal. Metabolic values are all normal with the exception of a mildly elevated glucose at 155. TSH is elevated at 16. ASSESSMENT: 1. Right lung mass. This is highly suspicious and likely is a primary pulmonary malignancy. Further investigation including bronchoscopy and biopsies will be needed. This will be done today. 2. Chronic obstructive pulmonary disease. The patient definitely has this. However, the tumor mass and its affects, including bronchial compression, are playing a significant role in his shortness of breath at this time. He is on bronchodilator therapy. Azithromycin has been added for possible bronchitis. A postobstructive pneumonia cannot be entirely excluded but seems less likely. 3. Homelessness. PLAN AND RECOMMENDATIONS: The patient will be kept n.p.o. for now, and bronchoscopy will be performed. Current medications will be continued except when he is n.p.o. for the procedure. Further plans and recommendations will be made based on the findings on bronchoscopy. Bronchodilator therapies should be continued. The addition of steroids may be of benefit for inflammatory changes associated with his large lung mass and possibly for COPD. Further plans and recommendations will be made based on the results of his progress over the next 12-24 hours. /[id number]/MODL MTDD
[2018-01-11] MEDS: TAMSULOSIN HCL 0.4 MG CAP PO SCH (20:42)
[2018-01-11] MEDS: ZOLPIDEM TARTRATE 5 MG TAB PO PRN (23:48)
[2018-01-12] MEDS: IPRATROPIUM/ALBUTEROL 3 ML DEYVIAL IH SCH ×3 (05:19→16:53)
--- NOTE | 2018-01-12 06:28 | PDMN ---
Medical Necessity Medical necessity: Pt meets INPT criteria per MD as of 01/11/18 and MCG M-100 COPD (LOS >2 MN for ongoing eval/mgmt of COPD exacerbation, lung mass with mets requiring bx, viral bronchitis and syncope).
[2018-01-12] MEDS: ENOXAPARIN 40 MG/0.4 ML SYR SC SCH (08:14)
[2018-01-12] MEDS: AZITHROMYCIN 250 MG TAB PO SCH (08:17)
[2018-01-12] MEDS: FLUTICASONE/SALMETER 250/50MCG DISKUS IH SCH (08:18)
[2018-01-12] MEDS: IPRATROPIUM 0.03% NASAL SPRAY EACHNARE SCH (08:19)
--- NOTE | 2018-01-12 12:01 | HOSPPROG ---
Hospitalist Progress Note Assessment/Plan: 62 yo M w likely lung CA and copd exacerbation COPD exacerbation -nebs + azithro for anti-inflammatory effect -hold off on steroids as don't want to distort path for lung biopsy moving good air today. hold on steroids Lung mass with mets -bronch with biopsy today -MRI brain 01/13 -outpatient follow-up with onc - Dr. Seals -needs outpatient PET/CT Viral bronchitis - rhinovirus Elevated TSH FT4 low- start levothyroxine Syncope -suspect vasovagal vs. hypovolemic -ECHO okay Chin laceration -remove sutures 01/17 Subjective: case d/w dr covignton. wishes to do MRI brain tomorrow Objective: Vital Signs Temp Pulse Resp BP Pulse Ox 36.8 C 106 H 20 118/69 94 01/12/18 11:56 01/12/18 11:56 01/12/18 11:56 01/12/18 11:56 01/12/18 11:56 Microbiology 01/11/18 15:15 Gram Stain - Final Bronchial Washing - Right Lobe Laboratory Results 01/12/18 04:15 01/11/18 01/12/18 01/13/18 05:59 05:59 05:59 Intake Total 400 960 Balance 400 960 - Physical Exam Constitutional: no apparent distress, appears nourished Eyes: PERRL, anicteric sclera Ears, Nose, Mouth, Throat: moist mucous membranes, hearing normal Cardiovascular: regular rate and rhythym, no murmur, rub, or gallop Respiratory: no respiratory distress, no rales or rhonchi Gastrointestinal: normoactive bowel sounds, soft, non-tender abdomen Genitourinary: No rausch in urethra Skin: warm, normal color Musculoskeletal: full muscle strength Neurologic: AAOx3 Psychiatric: interacting appropriately ICD10 Worksheet Patient Problems: Problems Problem Status Onset Bronchitis Acute Chin laceration Acute Pneumonia Acute Syncope Acute
--- NOTE | 2018-01-12 13:07 | SOAPPROG ---
SOAP Progress Note Assessment/Plan: Assessment: 62-year-old previous smoker presenting 01/10 with a lung mass/lung cancer. Lung mass/cancer. Lung cancer present by CT scan appearance an by bronchoscopy be appearance. Extensive involvement of the right lung is present and there are likely intrapulmonary metastases. Pathology from the bronchoscopy yesterday is pending and likely will be back Sunday or Sunday. History of tobacco abuse. COPD/emphysema. Exacerbation difficult to evaluate. Many of his symptoms may be due to bronchial narrowing in compression on the right side. Hypothyroidism. TSH elevated. Synthroid per hospitalist. Homelessness Plan: Continue bronchodilator treatments and azithromycin for usual Z-Inocencio course. Await biopsy results. I do not expect to find anything on cultures but they were sent. He will need to go home on Advair and albuterol. He refuses prednisone. This may be of benefit for decreasing inflammation associated with his extensive right-sided tumor. Oncology has seen the patient. He can follow up both with our office and with Oncology as an outpatient. Discussed with the patient, hospitalist. Subjective: Doing okay this morning. Not requiring oxygen. Still does feel short of breath , inhalers not helping. Had loss a cough with some blood after the bronchoscopy yesterday. Now resolved. Objective: Vital Signs Temp Pulse Resp BP Pulse Ox 36.8 C 106 H 20 118/69 94 01/12/18 11:56 01/12/18 11:56 01/12/18 11:56 01/12/18 11:56 01/12/18 11:56 Microbiology 01/11/18 15:15 Gram Stain - Final Bronchial Washing - Right Lobe Laboratory Results 01/12/18 04:15 01/11/18 01/12/18 01/13/18 05:59 05:59 05:59 Intake Total 400 960 Balance 400 960 Physical Exam - Physical Exam General Appearance: alert, no apparent distress, thin EENT: PERRL/EOMI, other (Not on a nasal cannula: Sats 94%) Neck: normal inspection (No JVD) Respiratory: decreased breath sounds, wheezing (Over right mid/upper lung), prolonged expiration, No lungs clear, No normal breath sounds, No respiratory distress, No rales, No rhonchi Cardiac/Chest: regular rate, rhythm, No gallop Abdomen: normal bowel sounds, non-tender, soft, No organomegaly Skin: normal color, warm/dry Extremities: No pedal edema Neuro/Psych: no motor/sensory deficits, No cognition abnormalities ICD10 Worksheet Patient Problems: Problems Problem Status Onset Bronchitis Acute Chin laceration Acute Pneumonia Acute Syncope Acute
[2018-01-12] MEDS ORDERED: GADOBUTROL 10 ML VIAL IVP ONE (13:08)
--- NOTE | 2018-01-12 14:17 | SOAPPROG ---
SOAP Progress Note Assessment/Plan: Assessment: Clarence is a 62 yo male with a previous history of smoking who was admitted for diagnostic work up of a lung mass. He states that he's had breathing trouble for over a year. He was seeing a physician down in [place] and was given inhalers for presumed COPD. Interestingly, back in November of 2016 he presented with cough and chest pain and was noted to have a right lung mass on a simple CXR. He was seen by Dr. Ortega in pulmonary who recommended a CT of the chest to be done. He states that his SOB continued to worsen over this period of time. He says around 1 week ago he was in the shower and experienced a syncopal episode where he fell and hit his chin and required stitches. He continues to have worsening intermittent headaches. No focal neurologic symptoms. He has had a 15lb weight loss which he attributes to poor nutrition at the homeless correction. He has had his bronchoscopy. Biopsy results probably will not be available until Sunday or Sunday. He has had a few headaches. MRI of his brain will be done on 01/13/18. He is very pessimistic about his chances for treatment and response. I tried to encourage him to wait for all the results (PET/CT, MRI brain, PD-L1, Lung SEQ for biomarker targets). We can then give him a much more realistic assessment of his overall prognosis and chance of response to therapy Plan: Check MRI of the brain when available Check path/biomarkers when available PET/CT as an outpatient Will follow with you. Subjective: He is very pessimistic about treatment options based on his personal experience with family members. Objective: Vital Signs Temp Pulse Resp BP Pulse Ox 36.8 C 106 H 20 118/69 94 01/12/18 11:56 01/12/18 11:56 01/12/18 11:56 01/12/18 11:56 01/12/18 11:56 Microbiology 01/11/18 15:15 Mycobacterial Smear (SOLOMON) - Final Lung - Right Lobe 01/11/18 15:15 Gram Stain - Final Bronchial Washing - Right Lobe Laboratory Results 01/12/18 04:15 01/10/18 01/11/18 01/12/18 23:59 23:59 23:59 Intake Total 400 960 Balance 400 960 Physical Exam - Physical Exam General Appearance: alert, mild distress (during episodes of coughing) Skin: normal color Neuro/Psych: alert, oriented x 3 ICD10 Worksheet Patient Problems: Problems Problem Status Onset Bronchitis Acute Chin laceration Acute Pneumonia Acute Syncope Acute
[2018-01-12] MEDS: TAMSULOSIN HCL 0.4 MG CAP PO SCH (21:33)
[2018-01-13] MEDS: IPRATROPIUM/ALBUTEROL 3 ML DEYVIAL IH SCH ×5 (00:35→19:59)
[2018-01-13] MEDS: IPRATROPIUM 0.03% NASAL SPRAY EACHNARE SCH ×3 (00:43→22:06)
[2018-01-13] MEDS: FLUTICASONE/SALMETER 250/50MCG DISKUS IH SCH ×3 (00:43→20:00)
[2018-01-13] MEDS: traMADol 50 MG TAB PO PRN ×2 (03:39→23:25)
[2018-01-13] MEDS: LEVOTHYROXINE 75 MCG TAB PO SCH (06:20)
[2018-01-13] MEDS: AZITHROMYCIN 250 MG TAB PO SCH (08:30)
[2018-01-13] MEDS: ENOXAPARIN 40 MG/0.4 ML SYR SC SCH (08:31)
[2018-01-13] MEDS ORDERED: LORazepam 1 MG TAB PO ONE (10:15)
[2018-01-13] MEDS ORDERED: GADOBUTROL 10 ML VIAL IVP ONE (11:42)
--- NOTE | 2018-01-13 12:34 | HOSPPROG ---
Hospitalist Progress Note Assessment/Plan: 62 yo M w likely lung CA and copd exacerbation COPD exacerbation -nebs + azithro for anti-inflammatory effect moving good air today. hold on steroids advair Lung mass with mets -bronch with biopsy -MRI brain 01/13 -outpatient follow-up with onc - Dr. Seals -needs outpatient PET/CT Viral bronchitis - rhinovirus Elevated TSH FT4 low- start levothyroxine Syncope -suspect vasovagal vs. hypovolemic -ECHO okay Chin laceration -remove sutures 01/17 Subjective: case d.w dr covington. had brain MRI this AM Objective: Vital Signs Temp Pulse Resp BP Pulse Ox 36.6 C 94 19 127/93 H 93 01/13/18 08:00 01/13/18 08:00 01/13/18 08:00 01/13/18 08:00 01/13/18 08:00 Microbiology 01/11/18 15:15 Gram Stain - Final Bronchial Washing - Right Lobe 01/11/18 15:15 Mycobacterial Smear (SOLOMON) - Final Lung - Right Lobe Laboratory Results 01/12/18 04:15 01/12/18 01/13/18 01/14/18 05:59 05:59 05:59 Intake Total 400 1410 Balance 400 1410 - Physical Exam Constitutional: no apparent distress, appears nourished Eyes: PERRL, anicteric sclera Ears, Nose, Mouth, Throat: moist mucous membranes, hearing normal Cardiovascular: regular rate and rhythym, no murmur, rub, or gallop Respiratory: no respiratory distress, no rales or rhonchi Gastrointestinal: normoactive bowel sounds, soft, non-tender abdomen Genitourinary: no bladder fullness, No rausch in urethra Skin: warm, normal color Musculoskeletal: full muscle strength Neurologic: AAOx3 ICD10 Worksheet Patient Problems: Problems Problem Status Onset Bronchitis Acute Chin laceration Acute Pneumonia Acute Syncope Acute
--- NOTE | 2018-01-13 15:50 | SOAPPROG ---
SOAP Progress Note Assessment/Plan: Assessment: 62-year-old previous smoker presenting 01/10 with a lung mass/lung cancer. Lung mass/cancer. Lung cancer present by CT scan appearance an by bronchoscopy be appearance. Extensive involvement of the right lung is present and there are likely intrapulmonary metastases. Pathology from the bronchoscopy 01/11 is pending and likely will be back Sunday or Sunday. History of tobacco abuse. COPD/emphysema. Exacerbation difficult to evaluate. Many of his symptoms may be due to bronchial narrowing in compression on the right side. Rhino virus may or may not be contributing to his wheezing. Hypothyroidism. TSH elevated. Synthroid per hospitalist. Homelessness Plan: Continue bronchodilator treatments and azithromycin for usual Z-Inocencio course. Await biopsy results. I do not expect to find anything on cultures but they were sent. He will need to go home on Advair and albuterol. He refuses prednisone. This may be of benefit for decreasing inflammation associated with his extensive right-sided tumor. Oncology has seen the patient. He can follow up both with our office and with Oncology as an outpatient. Discussed with the patient, hospitalist. Subjective: Unchanged. Some shortness of breath and wheezing/congestion. On no oxygen Objective: Vital Signs Temp Pulse Resp BP Pulse Ox 36.8 C 103 H 19 108/70 92 01/13/18 12:00 01/13/18 12:00 01/13/18 12:00 01/13/18 12:00 01/13/18 12:00 Microbiology 01/11/18 15:15 Gram Stain - Final Bronchial Washing - Right Lobe 01/11/18 15:15 Mycobacterial Smear (SOLOMON) - Final Lung - Right Lobe Laboratory Results 01/12/18 04:15 01/12/18 01/13/18 01/14/18 05:59 05:59 05:59 Intake Total 400 1410 Balance 400 1410 Pathology from bronchoscopy pending Cultures from bronchoscopy: Negative to date. Expect these to remain negative. MRI: No evidence of cerebral metastases. Sinus changes likely secondary to chronic sinusitis. Physical Exam - Physical Exam General Appearance: alert, no apparent distress, thin EENT: other (On room air) Neck: normal inspection (No JVD) Respiratory: wheezing (Present over the right mid and upper lung zone.), No lungs clear, No normal breath sounds, No rhonchi Cardiac/Chest: regular rate, rhythm Abdomen: normal bowel sounds, non-tender, soft Skin: normal color, warm/dry Extremities: No pedal edema Neuro/Psych: no motor/sensory deficits, No cognition abnormalities ICD10 Worksheet Patient Problems: Problems Problem Status Onset Bronchitis Acute Syncope Acute Pneumonia Acute Chin laceration Acute
[2018-01-13] MEDS: TAMSULOSIN HCL 0.4 MG CAP PO SCH (22:05)
[2018-01-13] MEDS: ZOLPIDEM TARTRATE 5 MG TAB PO PRN ×2 (23:26)
[2018-01-14] MEDS: IPRATROPIUM/ALBUTEROL 3 ML DEYVIAL IH SCH ×4 (05:18→21:32)
[2018-01-14] MEDS: LEVOTHYROXINE 75 MCG TAB PO SCH (06:06)
[2018-01-14] MEDS: ENOXAPARIN 40 MG/0.4 ML SYR SC SCH (08:02)
[2018-01-14] MEDS: AZITHROMYCIN 250 MG TAB PO SCH (08:02)
[2018-01-14] MEDS: FLUTICASONE/SALMETER 250/50MCG DISKUS IH SCH ×2 (08:03→21:20)
[2018-01-14] MEDS: IPRATROPIUM 0.03% NASAL SPRAY EACHNARE SCH ×2 (08:03→21:21)
--- NOTE | 2018-01-14 13:52 | SOAPPROG ---
SOAP Progress Note Assessment/Plan: Assessment/Plan: 62 yo man w what appears to be metastatic lung cancer admitted w increasing cough and SOB 1. RUL mass - likely primary lung cancer; biopsy results pending PDL and Lung Seq prob not back for a week query whether some palliative XRT to large RUL mass at location of bronchial narrowing may benefit pt (especially if a squamous cell) - pt does not seem to be clearing secretions and cough is worse today MRI brain negative PET/CT as outpt 2. COPD exacerbation - nebs/azithro 3. rhinovirus 01/14/18 13:56 Subjective: No acute events cough worse no hemoptysis Objective: Vital Signs Temp Pulse Resp BP Pulse Ox 36.4 C 104 H 20 101/76 95 01/14/18 11:20 01/14/18 11:23 01/14/18 11:23 01/14/18 11:20 01/14/18 11:23 Microbiology 01/11/18 15:15 Gram Stain - Final Bronchial Washing - Right Lobe Laboratory Results 01/12/18 04:15 01/13/18 01/14/18 01/15/18 05:59 05:59 05:59 Intake Total 1410 350 Balance 1410 350 Gen - NAD HEENT - anicteric CV - RRR Chest - consolidation changes RUL; diffuse wheezing abd - soft, NT, BS+ ext - no edema ICD10 Worksheet Patient Problems: Problems Problem Status Onset Bronchitis Acute Chin laceration Acute Pneumonia Acute Syncope Acute
--- NOTE | 2018-01-14 15:11 | ASMTCMCOM ---
CM Note CM Note Notes: Patient plan of care reviewed in rounds. He is a homeless 62 year old male with a new diagnosis of lung cancer. He has been in homeless shelters off and on for three years now. He seems to have had many negative experiences navigating his needs. He has no available family but shares with me that he has some prospective jobs. He also shares that a Rabbi is interested in providing him resources as well. Rabbi Redding is at [phone]. He also shares that he is wanting to fight for his life and wishes to pursue treament. He has a friend in [place] who has inspired him to fight. He has a PCP at [facility]. Message left with Jaya at [facility] to see if patient may be eligible for any housing. CM to follow for needs. Plan: TBD Date Signed: 01/14/2018 03:10 PM Electronically Signed By:Haley Terrell RN
--- NOTE | 2018-01-14 17:07 | HOSPPROG ---
Hospitalist Progress Note Assessment/Plan: 62 yo M w likely lung CA and copd exacerbation COPD exacerbation -nebs + azithro for anti-inflammatory effect moving good air today. hold on steroids advair Lung mass with juan du mets -bronch with biopsy -MRI brain 01/13 w no mets -outpatient follow-up with onc - Dr. Seals -needs outpatient PET/CT Viral bronchitis - rhinovirus Elevated TSH FT4 low- start levothyroxine Syncope -suspect vasovagal vs. hypovolemic -ECHO okay Chin laceration -remove sutures 01/17 Subjective: case d/w dr hernandez. path pending Objective: Vital Signs Temp Pulse Resp BP Pulse Ox 36.8 C 98 18 103/70 90 L 01/14/18 15:52 01/14/18 15:52 01/14/18 15:52 01/14/18 15:52 01/14/18 15:52 Microbiology 01/11/18 15:15 Gram Stain - Final Bronchial Washing - Right Lobe Bronchial Culture - Final Laboratory Results 01/12/18 04:15 01/13/18 01/14/18 01/15/18 05:59 05:59 05:59 Intake Total 1410 350 Balance 1410 350 - Physical Exam Constitutional: no apparent distress, appears nourished Eyes: PERRL, anicteric sclera Ears, Nose, Mouth, Throat: moist mucous membranes, hearing normal Cardiovascular: regular rate and rhythym, no murmur, rub, or gallop Respiratory: no respiratory distress, no rales or rhonchi Gastrointestinal: normoactive bowel sounds, soft, non-tender abdomen Genitourinary: no bladder fullness, No rausch in urethra Skin: warm, normal color Musculoskeletal: full muscle strength Neurologic: AAOx3 ICD10 Worksheet Patient Problems: Problems Problem Status Onset Bronchitis Acute Chin laceration Acute Pneumonia Acute Syncope Acute
[2018-01-14] MEDS: TAMSULOSIN HCL 0.4 MG CAP PO SCH (21:20)
[2018-01-14] MEDS: ZOLPIDEM TARTRATE 5 MG TAB PO PRN (23:04)
[2018-01-14] MEDS: traMADol 50 MG TAB PO PRN (23:04)
[2018-01-15] MEDS: IPRATROPIUM/ALBUTEROL 3 ML DEYVIAL IH SCH ×4 (05:30→21:55)
[2018-01-15] MEDS: LEVOTHYROXINE 75 MCG TAB PO SCH (05:57)
[2018-01-15] MEDS: traMADol 50 MG TAB PO PRN (05:58)
[2018-01-15] MEDS: AZITHROMYCIN 250 MG TAB PO SCH (08:33)
[2018-01-15] MEDS: FLUTICASONE/SALMETER 250/50MCG DISKUS IH SCH ×2 (08:34→21:09)
[2018-01-15] MEDS: IPRATROPIUM 0.03% NASAL SPRAY EACHNARE SCH ×2 (08:34→21:11)
[2018-01-15] MEDS: ENOXAPARIN 40 MG/0.4 ML SYR SC SCH (10:37)
--- NOTE | 2018-01-15 12:55 | SOAPPROG ---
SOTOR[facility] Progress Note Assessment/Plan: Assessment/Plan: 62 yo man w what appears to be metastatic lung cancer admitted w increasing cough and SOB 1. RUL mass - likely primary lung cancer; biopsy only w squamous metaplasia ( makes SCC more likely); will need another bx and could do through IR given previous hemoptysis Reviewed CT scan again personally - not sure how much of mass may be postob PNA and how much tumor PDL and Lung Seq prob not back for a week query whether some palliative XRT to large RUL mass at location of bronchial narrowing may benefit pt (especially if a squamous cell) - pt does not seem to be clearing secretions well MRI brain negative will go ahead and get abdominal scan today to see if any obvious mets 2. COPD exacerbation - nebs; ?add steroids 3. PostObx PNA - will d/w pulm; would feel more comfortable w pt back on antibiotics for now while deciding on XRT 4. Rhinovirus I think if we can obtain another bx and abd scan, pt may be able to go soon w outpt follow up He looks more stable today and do not feel will need inpt XRT at this time 01/14/18 13:56 01/15/18 12:51 01/15/18 12:55 Subjective: no acute events still w cough Objective: Vital Signs Temp Pulse Resp BP Pulse Ox 37.0 C 96 16 126/88 H 89 L 01/15/18 12:00 01/15/18 12:00 01/15/18 12:00 01/15/18 12:00 01/15/18 12:00 Microbiology 01/11/18 15:15 Gram Stain - Final Bronchial Washing - Right Lobe Bronchial Culture - Final Laboratory Results 01/12/18 04:15 01/14/18 01/15/18 01/16/18 05:59 05:59 05:59 Intake Total 350 400 Balance 350 400 Gen - NAD HEENT - anicteric CV - RRR Chest - rales in RUL; wheezing bilaterally Abd - soft, NT, liver not enlarged Ext - no edema ICD10 Worksheet Patient Problems: Problems Problem Status Onset Bronchitis Acute Chin laceration Acute Pneumonia Acute Syncope Acute
[2018-01-15] MEDS ORDERED: IOPAMIDOL (ISOVUE-300) 100 ML BTL ONE (14:55)
--- NOTE | 2018-01-15 14:56 | ASMTCMCOM ---
CM Note CM Note Notes: Patient plan of care reviewed in rounds. Patient is a homeless 62 year old gentleman with new diagnosis of lung cancer. I have attempted to call Rabbi Redding but he is off today and have also left a message with Mehdi [phone] his CM at the retirement. Per oncologist, will have further studies. CM to follow for needs. Plan: TBD. May need to return to retirement with planned follow up. Date Signed: 01/15/2018 02:55 PM Electronically Signed By:Haley Terrell RN
--- NOTE | 2018-01-15 17:55 | HOSPPROG ---
Hospitalist Progress Note Assessment/Plan: * COPD exacerbation -nebs + azithro x 5 days -consider steroids - patient does not want them at this time * Lung mass with mets -s/p bronch with biopsy today - path negative -need to reattempt biopsy - ct guided vs surgical via mediastinoscopy * Viral bronchitis - rhinovirus * Elevated TSH -synthroid started * Syncope -suspect vasovagal vs. hypovolemic -ECHO okay * Chin laceration -remove sutures 01/17 Subjective: No new complaints. Objective: Vital Signs Temp Pulse Resp BP Pulse Ox 37.4 C 93 14 100/75 90 L 01/15/18 16:00 01/15/18 16:00 01/15/18 17:29 01/15/18 16:00 01/15/18 16:00 Microbiology 01/11/18 15:15 Mycobacterial Smear (SOLOMON) - Final Lung - Right Lobe 01/11/18 15:15 Gram Stain - Final Bronchial Washing - Right Lobe Bronchial Culture - Final Laboratory Results 01/12/18 04:15 01/14/18 01/15/18 01/16/18 05:59 05:59 05:59 Intake Total 350 400 Balance 350 400 d/w Dr. Samayoa regarding next biopsy approach CT abd - negative except for pulmonary met - Physical Exam Constitutional: no apparent distress, appears nourished, not in pain Cardiovascular: regular rate and rhythym, no murmur, rub, or gallop Respiratory: no rales or rhonchi, clear to auscultation, expiratory wheeze, respiratory distress, rhonchi Gastrointestinal: normoactive bowel sounds, soft, non-tender abdomen, no palpable masses Skin: no rashes or abrasions, no fluctuance, no induration Neurologic: AAOx3, sensation intact bilaterally Psychiatric: interacting appropriately, not anxious, not encephalopathic, thought process linear ICD10 Worksheet Patient Problems: Problems Problem Status Onset Bronchitis Acute Syncope Acute Pneumonia Acute Chin laceration Acute
[2018-01-15] MEDS: TAMSULOSIN HCL 0.4 MG CAP PO SCH (21:12)
--- NOTE | 2018-01-15 21:39 | SOAPPROG ---
SOAP Progress Note Assessment/Plan: Assessment: 62-year-old previous smoker presenting 01/10 with a lung mass/lung cancer. Lung mass/cancer. Lung cancer present by CT scan appearance an by bronchoscopy be appearance. Extensive involvement of the right lung is present and there are likely intrapulmonary metastases. Pathology and cytologies both negative. Further tissue will be needed. Discussed with Radiology today. Percutaneous biopsies for cor sampling is felt to be possible and would provide enough material hopefully for tissue typing. I can repeat bronchoscopy with needle biopsies. This would likely provide a a cytologic diagnosis but would not be sufficient for tissue typing. Mediastinoscopy could also be considered. History of tobacco abuse. COPD/emphysema. Exacerbation difficult to evaluate. Many of his symptoms may be due to bronchial narrowing in compression on the right side. Rhino virus may or may not be contributing to his wheezing. No evidence of significant bronchitis or pneumonia. No evidence of postobstructive pneumonia. Culture results from bronchoscopy are negative. Examination is significantly better today. Hypothyroidism. TSH elevated. Synthroid per hospitalist. Homelessness Plan: Continue bronchodilator treatments and azithromycin for usual Z-Inocencio course. I will order percutaneous biopsy via IR for tomorrow. Clear liquids in the a.m. then NPO. \ Subjective: Feels better today. Less cough, less shortness of breath Objective: Vital Signs Temp Pulse Resp BP Pulse Ox 37.0 C 102 H 18 115/87 H 90 L 01/15/18 19:44 01/15/18 19:44 01/15/18 19:44 01/15/18 19:44 01/15/18 19:44 Microbiology 01/11/18 15:15 Mycobacterial Smear (SOLOMON) - Final Lung - Right Lobe 01/11/18 15:15 Gram Stain - Final Bronchial Washing - Right Lobe Bronchial Culture - Final Laboratory Results 01/12/18 04:15 01/14/18 01/15/18 01/16/18 05:59 05:59 05:59 Intake Total 350 400 Balance 350 400 Endobronchial biopsies and cytologies both negative for malignancy Physical Exam - Physical Exam General Appearance: alert, no apparent distress EENT: other (On room air) Neck: normal inspection (No JVD, no nodes), No lymphadenopathy (R), No lymphadenopathy (L) Respiratory: decreased breath sounds, wheezing (Wheezing is present over the right upper lobe. Diffuse wheezing and congestion is significantly better), No lungs clear, No normal breath sounds, No rales, No rhonchi Cardiac/Chest: regular rate, rhythm Abdomen: normal bowel sounds, non-tender, soft Skin: normal color, warm/dry Extremities: No pedal edema Neuro/Psych: no motor/sensory deficits, No cognition abnormalities ICD10 Worksheet Patient Problems: Problems Problem Status Onset Bronchitis Acute Chin laceration Acute Pneumonia Acute Syncope Acute
[2018-01-15] MEDS: oxyCODONE IR 5 MG TAB PO PRN (23:00)
[2018-01-15] MEDS: ZOLPIDEM TARTRATE 5 MG TAB PO PRN (23:00)
[2018-01-16] MEDS: IPRATROPIUM/ALBUTEROL 3 ML DEYVIAL IH SCH ×4 (06:00→20:10)
[2018-01-16] MEDS: LEVOTHYROXINE 75 MCG TAB PO SCH (06:22)
[2018-01-16 09:07] LABS: INR 1.01 (0.83-1.16); PROTIME(PATIENT) 13.5 SEC (12.0-15.0)
[2018-01-16] MEDS ORDERED: PROTAMINE SULFATE 50 MG/5 ML VIAL IVP PRN (10:30)
[2018-01-16] MEDS ORDERED: MEPERIDINE 25 MG/ML SYR IVP PRN (10:30)
[2018-01-16] MEDS ORDERED: NS 1,000 ML IV SCH (10:30)
[2018-01-16] MEDS ORDERED: ALTEPLASE 2 MG VIAL IVP PRN (10:30)
[2018-01-16] MEDS ORDERED: FLUMAZENIL 0.5 MG/5 ML MDV IVP PRN (10:30)
[2018-01-16] MEDS ORDERED: MIDAZOLAM 2 MG/2 ML VIAL IVP PRN (10:30)
[2018-01-16] MEDS ORDERED: HEPARIN 10,000 UNIT/10 ML MDV (1,000 UNIT/ML) IVP PRN (10:30)
[2018-01-16] MEDS ORDERED: ceFAZolin 2 GM/DEXTROSE 100 ML IV ONE (10:30)
[2018-01-16] MEDS ORDERED: NALOXONE HCL 0.4 MG/ML INJ IVP PRN (10:30)
[2018-01-16] MEDS ORDERED: fentaNYL 100 MCG/2 ML INJ IVP PRN (10:30)
[2018-01-16] MEDS ORDERED: GLUCAGON HCL 1 MG VIAL IVP PRN (10:30)
[2018-01-16] MEDS: FLUTICASONE/SALMETER 250/50MCG DISKUS IH SCH ×2 (10:56→19:55)
[2018-01-16] MEDS ORDERED: LIDOCAINE 1% 300 MG/30 ML SDV ONE (13:36)
--- NOTE | 2018-01-16 14:35 | PDHPUP ---
History & Physical Update H&P update statement: This history and physical update is based on an assessment of the patient which was completed after admission or registration (within 24 hours), but prior to the surgery/procedure. Right lung mass, CT guided biopsy H&P update: H&P reviewed & patient examined, no change in patient's condition since H&P completed
--- NOTE | 2018-01-16 14:35 | PDPROPOC ---
Sedation Plan of Care Sedation Plan of Care: vital signs stable, mental status noted, patient educated of risks, benefits, alternatives, patient can tolerate sedation ASA Classification: ASA 3 Planned drugs: fentanyl, midazolam Mallampati Score: Class 2 Mallampati Reference Image: Patient passed 3-3-2 rule?: Yes
--- NOTE | 2018-01-16 14:36 | PDRADPN ---
Radiology Procedure Note Date of Procedure: 01/16/18 Radiologist: Max Bolden Anesthesia: IV Sedation Pre-op Diagnosis: Lung mass Post-op Diagnosis: Lung mass Indication: Lung cancer Procedure: CT guided lung mass biopsy Finding(s): Three 18 ga cores. Small post procedure pneumothorax. CXR surveillance to evaluate progression and possible chest tube placement. Inf/Abcess present in the surg proc area at time of surgery?: No
--- NOTE | 2018-01-16 14:58 | SOAPPROG ---
SOAP Progress Note Assessment/Plan: Assessment/Plan: 62 yo man w what appears to be metastatic lung cancer admitted w increasing cough and SOB 1. RUL mass - likely primary lung cancer; biopsy only w squamous metaplasia ( makes SCC more likely); repeated biopsy today w IR Reviewed CT scan and discussed w Dr Rockwell yesterday - does not feel pt has sig postobx PNA based on bronch PDL and Lung Seq prob not back for a week after able to obtain adequate tissue query whether some palliative XRT to large RUL mass at location of bronchial narrowing may benefit pt but can be done as outpt MRI brain negative Abd CT does not show other sites of dz but does appear to have LLL mets ( contralateral lung mets) 2. COPD exacerbation - nebs; pt will not agree to steroids 3. PostObx PNA - s/p azithro 4. Rhinovirus 5. Pneumothorax - from CT guided biopsy; woxygen and follow up CXR 01/16/18 14:52 Subjective: Pt s/p procedure Objective: Vital Signs Temp Pulse Resp BP Pulse Ox 37.9 C 91 16 103/70 99 01/16/18 13:32 01/16/18 13:32 01/16/18 13:32 01/16/18 14:26 01/16/18 14:30 Microbiology 01/11/18 15:15 Mycobacterial Smear (SOLOMON) - Final Lung - Right Lobe Laboratory Results 01/12/18 04:15 01/15/18 01/16/18 01/17/18 05:59 05:59 05:59 Intake Total 400 Balance 400 PT 13.5 SEC (12.0-15.0) 01/16/18 08:45 INR 1.01 (0.83-1.16) 01/16/18 08:45 Not examined ICD10 Worksheet Patient Problems: Problems Problem Status Onset Bronchitis Acute Chin laceration Acute Pneumonia Acute Syncope Acute
--- NOTE | 2018-01-16 15:12 | ASMTCMCOM ---
CM Note CM Note Notes: Patient plan of care reviewed. 62 year old male with diagnosis of lung cancer, COPD exacerbation and homelessness. He has a reserved bed at the [facility]. He is unhappy with his case workers and healthcare providers in general. He states he feels like housing options are being withheld from him on a personal basis. I spoke to his CM Mehdi yesterday who states patient can call him which angered the patient. He is to under go repeat biopsies today. CM to follow. Plan: [facility] when medically cleared for discharge. Date Signed: 01/16/2018 03:11 PM Electronically Signed By:Haley Terrell RN
--- NOTE | 2018-01-16 17:08 | HOSPPROG ---
Hospitalist Progress Note Assessment/Plan: * COPD exacerbation -nebs + azithro x 5 days -consider steroids - patient does not want them at this time * Lung mass with mets -s/p bronch with biopsy - path false negative -CT guided biopsy of lung mass today in IR * Viral bronchitis - rhinovirus * Elevated TSH -synthroid started * Syncope -suspect vasovagal vs. hypovolemic -ECHO okay * Chin laceration -remove sutures 01/17 * Post-procedure PTX -recheck CXR in am Subjective: no new complaints Objective: Vital Signs Temp Pulse Resp BP Pulse Ox 36.8 C 79 16 106/63 94 01/16/18 16:00 01/16/18 16:07 01/16/18 16:07 01/16/18 16:07 01/16/18 16:07 Microbiology 01/11/18 15:15 Mycobacterial Smear (SOLOMON) - Final Lung - Right Lobe Laboratory Results 01/12/18 04:15 01/15/18 01/16/18 01/17/18 05:59 05:59 05:59 Intake Total 400 Balance 400 PT 13.5 SEC (12.0-15.0) 01/16/18 08:45 INR 1.01 (0.83-1.16) 01/16/18 08:45 CXR viewed, my personal interpretation is - PTX d/w Dr. Samayoa - patient can DC when med stable and f/u [facility] for biopsy results - Physical Exam Constitutional: no apparent distress, appears nourished, not in pain Cardiovascular: regular rate and rhythym, no murmur, rub, or gallop Respiratory: no respiratory distress, no rales or rhonchi, clear to auscultation Gastrointestinal: normoactive bowel sounds, soft, non-tender abdomen, no palpable masses Skin: no rashes or abrasions, no fluctuance, no induration Neurologic: AAOx3, sensation intact bilaterally Psychiatric: interacting appropriately, not anxious, not encephalopathic, thought process linear ICD10 Worksheet Patient Problems: Problems Problem Status Onset Bronchitis Acute Syncope Acute Pneumonia Acute Chin laceration Acute
[2018-01-16] MEDS: IPRATROPIUM 0.03% NASAL SPRAY EACHNARE SCH ×2 (17:35→20:49)
[2018-01-16] MEDS: TAMSULOSIN HCL 0.4 MG CAP PO SCH (20:47)
[2018-01-16] MEDS: oxyCODONE IR 5 MG TAB PO PRN (23:29)
[2018-01-16] MEDS: ZOLPIDEM TARTRATE 5 MG TAB PO PRN (23:29)
[2018-01-17] MEDS: IPRATROPIUM/ALBUTEROL 3 ML DEYVIAL IH SCH ×2 (05:36→10:45)
[2018-01-17] MEDS: FLUTICASONE/SALMETER 250/50MCG DISKUS IH SCH ×2 (05:36→20:12)
[2018-01-17] MEDS: oxyCODONE IR 5 MG TAB PO PRN ×4 (05:43→22:07)
[2018-01-17] MEDS: ACETAMINOPHEN 325 MG TAB PO PRN (05:43)
[2018-01-17] MEDS: LEVOTHYROXINE 75 MCG TAB PO SCH (05:44)
[2018-01-17] MEDS: IPRATROPIUM 0.03% NASAL SPRAY EACHNARE SCH ×2 (08:39→22:08)
[2018-01-17] MEDS: ENOXAPARIN 40 MG/0.4 ML SYR SC SCH (08:40)
[2018-01-17] MEDS ORDERED: BISACODYL 10 MG SUPP PR PRN (08:48)
[2018-01-17] MEDS ORDERED: LACTULOSE 20 GM/30 ML UDCUP PO PRN (08:48)
[2018-01-17] MEDS ORDERED: POLYETHYLENE GLYCOL 3350 17 GM PKT PO PRN (08:48)
[2018-01-17] MEDS ORDERED: MAGNESIUM HYDROXIDE 30 ML UDCUP PO PRN (08:48)
[2018-01-17] MEDS: SENNOSIDES/DOCUSATE SODIUM TAB PO SCH ×2 (08:59→22:06)
--- NOTE | 2018-01-17 12:12 | SOAPPROG ---
SOAP Progress Note Assessment/Plan: Assessment/Plan: 62 yo man w what appears to be metastatic lung cancer admitted w increasing cough and SOB 1. RUL mass - likely primary lung cancer; biopsy only w squamous metaplasia ( makes SCC more likely); repeated biopsy w IR, path pending Reviewed CT scan and discussed w Dr Rockwell - does not feel pt has sig postobx PNA based on bronch PDL and Lung Seq prob not back for a week after able to obtain adequate tissue query whether some palliative XRT to large RUL mass at location of bronchial narrowing may benefit pt but can be done as outpt MRI brain negative Abd CT does not show other sites of dz but does appear to have LLL mets ( contralateral lung mets) arranging PET as outpt and follow w Dr Seals 2. COPD exacerbation - nebs; pt will not agree to steroids 3. PostObx PNA - s/p azithro 4. Rhinovirus 5. Pneumothorax - from CT guided biopsy; improved w oxygen alone 6. dizziness - reassessing vitals today 01/16/18 14:52 01/17/18 12:09 Subjective: Pt reports feeling dizzy after shower Objective: Vital Signs Temp Pulse Resp BP Pulse Ox 37.0 C 90 14 101/76 92 01/17/18 11:19 01/17/18 11:19 01/17/18 11:19 01/17/18 11:19 01/17/18 11:19 Microbiology 01/11/18 15:15 Gram Stain - Final Bronchial Washing - Right Lobe Bronchial Culture - Final 01/11/18 15:15 Mycobacterial Smear (SOLOMON) - Final Lung - Right Lobe Laboratory Results 01/12/18 04:15 01/16/18 01/17/18 01/18/18 05:59 05:59 05:59 Intake Total 500 Balance 500 PT 13.5 SEC (12.0-15.0) 01/16/18 08:45 INR 1.01 (0.83-1.16) 01/16/18 08:45 Gen - feeling poorly CV - RRR Lungs - rhonci and rales RUL Abd -soft, BS+ ext - clammy, no edema Neuro - nonfocal ICD10 Worksheet Patient Problems: Problems Problem Status Onset Bronchitis Acute Chin laceration Acute Pneumonia Acute Syncope Acute
--- NOTE | 2018-01-17 14:00 | SOAPPROG ---
SOAP Progress Note Assessment/Plan: Assessment: 62-year-old previous smoker presenting 01/10 with a lung mass/lung cancer. Lung mass/cancer. Lung cancer present by CT scan appearance an by bronchoscopy be appearance. Extensive involvement of the right lung is present and there are likely intrapulmonary metastases. Pathology and cytologies both negative from the bronch. Percutaneous core biopsies were done yesterday. Awaiting pathology. Small apical pneumothorax present postprocedure but stable. Not a clinical issue. History of tobacco abuse. COPD/emphysema. Exacerbation difficult to evaluate. Many of his symptoms may be due to bronchial narrowing in compression on the right side. Rhino virus may or may not be contributing to his wheezing. No evidence of significant bronchitis or pneumonia. No evidence of postobstructive pneumonia. Culture results from bronchoscopy are negative. Examination has waxed and waned somewhat regarding wheezing over the right upper lung zone. Increased again today.. Hypothyroidism. TSH elevated. On Synthroid per hospitalist. Homelessness. Looking for housing with help from others Plan: Continue bronchodilator treatments and azithromycin for usual Z-Inocencio course. Await pathology. Subjective: He has some residual pain on the right following his biopsy yesterday. No bleeding, no hemoptysis. Some lightheadedness after being in a hot shower earlier today. Objective: Vital Signs Temp Pulse Resp BP Pulse Ox 36.3 C 86 14 106/70 94 01/17/18 12:20 01/17/18 12:20 01/17/18 12:20 01/17/18 12:20 01/17/18 12:20 Microbiology 01/11/18 15:15 Gram Stain - Final Bronchial Washing - Right Lobe Bronchial Culture - Final 01/11/18 15:15 Mycobacterial Smear (SOLOMON) - Final Lung - Right Lobe Laboratory Results 01/12/18 04:15 01/16/18 01/17/18 01/18/18 05:59 05:59 05:59 Intake Total 500 Balance 500 PT 13.5 SEC (12.0-15.0) 01/16/18 08:45 INR 1.01 (0.83-1.16) 01/16/18 08:45 Pathology from the biopsy remains pending. 3 core samples obtained. Chest x-ray: Follow-up chest x-ray last night, small, stable right apical pneumothorax Physical Exam - Physical Exam General Appearance: alert, no apparent distress, thin EENT: PERRL/EOMI, other (On room air, 92%) Neck: normal inspection (No JVD), No lymphadenopathy (R), No lymphadenopathy (L) Respiratory: decreased breath sounds (Bilaterally), wheezing (Increased wheezing compared to 2 days ago over the right upper lung area.), No lungs clear , No normal breath sounds, No rhonchi Cardiac/Chest: regular rate, rhythm Abdomen: normal bowel sounds, non-tender, soft, No organomegaly Skin: normal color, warm/dry Extremities: No pedal edema Neuro/Psych: no motor/sensory deficits, No cognition abnormalities ICD10 Worksheet Patient Problems: Problems Problem Status Onset Bronchitis Acute Syncope Acute Pneumonia Acute Chin laceration Acute
--- NOTE | 2018-01-17 16:17 | HOSPPROG ---
Hospitalist Progress Note Assessment/Plan: * COPD exacerbation -nebs + s/p azithro x 5 days * Lung mass with mets -s/p bronch with biopsy - path false negative -CT guided biopsy of lung mass yesterday in IR, results pending * Viral bronchitis - rhinovirus, continue supportive care * Elevated TSH -synthroid started, repeat TSH/T4 in 4-6 weeks as OP * Syncope -suspect vasovagal vs. hypovolemic -ECHO okay * Chin laceration -remove sutures 01/17 * Post-procedure PTX -CXR from this AM is stable - Pulmonology following Subjective: Patient reports some dizziness in the shower this AM Objective: Vital Signs Temp Pulse Resp BP Pulse Ox 37.4 C 93 14 106/76 90 L 01/17/18 15:23 01/17/18 15:23 01/17/18 15:23 01/17/18 15:23 01/17/18 15:23 Microbiology 01/11/18 15:15 Gram Stain - Final Bronchial Washing - Right Lobe Bronchial Culture - Final 01/11/18 15:15 Mycobacterial Smear (SOLOMON) - Final Lung - Right Lobe Laboratory Results 01/12/18 04:15 01/16/18 01/17/18 01/18/18 05:59 05:59 05:59 Intake Total 500 Balance 500 PT 13.5 SEC (12.0-15.0) 01/16/18 08:45 INR 1.01 (0.83-1.16) 01/16/18 08:45 - Physical Exam Constitutional: no apparent distress Eyes: PERRL Ears, Nose, Mouth, Throat: moist mucous membranes Cardiovascular: regular rate and rhythym Respiratory: no respiratory distress Gastrointestinal: soft, non-tender abdomen Skin: warm Musculoskeletal: full muscle strength Neurologic: AAOx3 Psychiatric: interacting appropriately ICD10 Worksheet Patient Problems: Problems Problem Status Onset Bronchitis Acute Chin laceration Acute Pneumonia Acute Syncope Acute
[2018-01-17] MEDS: IPRATROPIUM/ALBUTEROL 3 ML DEYVIAL IH PRN (17:47)
[2018-01-17] MEDS: TAMSULOSIN HCL 0.4 MG CAP PO SCH (22:07)
[2018-01-18] MEDS: FLUTICASONE/SALMETER 250/50MCG DISKUS IH SCH ×2 (05:29→17:53)
[2018-01-18] MEDS: LEVOTHYROXINE 75 MCG TAB PO SCH (06:05)
[2018-01-18] MEDS: ENOXAPARIN 40 MG/0.4 ML SYR SC SCH (09:30)
[2018-01-18] MEDS: SENNOSIDES/DOCUSATE SODIUM TAB PO SCH ×2 (09:46→22:04)
[2018-01-18] MEDS: IPRATROPIUM 0.03% NASAL SPRAY EACHNARE SCH ×2 (09:47→22:05)
[2018-01-18] MEDS: oxyCODONE IR 5 MG TAB PO PRN ×3 (10:24→23:22)
--- NOTE | 2018-01-18 12:16 | SOAPPROG ---
SOAP Progress Note Assessment/Plan: Assessment/Plan: 62 yo man w what appears to be metastatic lung cancer admitted w increasing cough and SOB 1. RUL mass - adenocarcinoma confirmed Reviewed CT scan and discussed w Dr Rockwell - does not feel pt has sig postobx PNA based on bronch PDL and Lung Seq prob not back for a week MRI brain negative Abd CT does not show other sites of dz but does appear to have LLL mets ( contralateral lung mets) arranging PET as outpt and follow w Dr Larkin now 2. COPD exacerbation - nebs; pt will not agree to steroids 3. PostObx PNA - s/p azithro 4. Rhinovirus 5. Pneumothorax - from CT guided biopsy; improved w oxygen alone 6. Dispo - pt does not want to leave; appreciate SW assistance 01/18/18 12:14 Subjective: Pt reports "not feeling well" says he is weak Objective: Vital Signs Temp Pulse Resp BP Pulse Ox 36.9 C 80 16 106/67 90 L 01/18/18 07:44 01/18/18 07:44 01/18/18 07:44 01/18/18 07:44 01/18/18 07:44 Laboratory Results 01/12/18 04:15 01/17/18 01/18/18 01/19/18 05:59 05:59 05:59 Intake Total 500 300 Balance 500 300 PT 13.5 SEC (12.0-15.0) 01/16/18 08:45 INR 1.01 (0.83-1.16) 01/16/18 08:45 No physical exam changes ICD10 Worksheet Patient Problems: Problems Problem Status Onset Bronchitis Acute Chin laceration Acute Pneumonia Acute Syncope Acute
--- NOTE | 2018-01-18 14:34 | HOSPPROG ---
Hospitalist Progress Note Assessment/Plan: * COPD exacerbation -nebs + s/p azithro x 5 days * Lung mass with mets -s/p bronch with biopsy - path false negative -CT guided biopsy of lung mass, showing adenocarcinoma, primary lung -PDL and Lung Seq pending - MRI brain negative - Abd CT showing LLL mets (contralateral lung mets), no other evidence of mets * Viral bronchitis - rhinovirus, continue supportive care * Elevated TSH -synthroid started, repeat TSH/T4 in 4-6 weeks as OP * Syncope -suspect vasovagal vs. hypovolemic -ECHO okay * Chin laceration -remove sutures 01/17 * Post-procedure PTX -CXR from 01/17 is stable - Pulmonology following Dispo: Likely tomorrow to homeless [facility], pending improvement in pain and LH Subjective: Patient reports some LH in shower this AM Objective: Vital Signs Temp Pulse Resp BP Pulse Ox 36.9 C 80 16 106/67 90 L 01/18/18 07:44 01/18/18 07:44 01/18/18 07:44 01/18/18 07:44 01/18/18 07:44 Laboratory Results 01/12/18 04:15 01/17/18 01/18/18 01/19/18 05:59 05:59 05:59 Intake Total 500 300 Balance 500 300 PT 13.5 SEC (12.0-15.0) 01/16/18 08:45 INR 1.01 (0.83-1.16) 01/16/18 08:45 - Physical Exam Constitutional: no apparent distress Eyes: PERRL Ears, Nose, Mouth, Throat: moist mucous membranes Cardiovascular: regular rate and rhythym Respiratory: no respiratory distress Gastrointestinal: soft, non-tender abdomen Genitourinary: no bladder fullness Skin: warm Neurologic: AAOx3 Psychiatric: interacting appropriately ICD10 Worksheet Patient Problems: Problems Problem Status Onset Bronchitis Acute Chin laceration Acute Pneumonia Acute Syncope Acute
--- NOTE | 2018-01-18 16:07 | ASMTCMCOM ---
CM Note CM Note Notes: Pt received oncology consultation and results of biopsy today, and will need to follow up with them outpatient. Pt had pain and lightheadedness today and was unable to discharge. CM spoke with [facility] with whom pt was consulting to find housing. [facility] has been unable to obtain any leads. Pt adamantly refuses to seek assistance through [facility] stating he is "not mentally ill at all and that would be fraud." CM suggested that the trauma of being homeless might qualify him for care through [facility], but pt refused vehemently and became irritable. Pt's CM Mehdi from [facility] left a message stating pt could stay at the correction day of discharge. He would simply need to line up between 5pm and 7pm as usual. Pt is unhappy with care he is getting and with the correction's inability to obtain housing for him given he is "gravely ill." Pt will need medicaid discharge transport upon discharge. D/C Plan: [facility] Date Signed: 01/18/2018 04:06 PM Electronically Signed By:Sonia Peoples
[2018-01-18] MEDS: CALCIUM CARBONATE 500 MG CHEWABLE TAB PO PRN (17:35)
[2018-01-18] MEDS: IPRATROPIUM/ALBUTEROL 3 ML DEYVIAL IH PRN (17:52)
[2018-01-18] MEDS: TAMSULOSIN HCL 0.4 MG CAP PO SCH (22:04)
[2018-01-18] MEDS: ZOLPIDEM TARTRATE 5 MG TAB PO PRN (23:23)
[2018-01-19] MEDS: IPRATROPIUM/ALBUTEROL 3 ML DEYVIAL IH PRN (00:32)
[2018-01-19] MEDS: LEVOTHYROXINE 75 MCG TAB PO SCH (05:34)
[2018-01-19] MEDS: oxyCODONE IR 5 MG TAB PO PRN ×4 (05:35→22:41)
[2018-01-19] MEDS: IPRATROPIUM 0.03% NASAL SPRAY EACHNARE SCH ×2 (08:12→20:23)
[2018-01-19] MEDS: FLUTICASONE/SALMETER 250/50MCG DISKUS IH SCH ×2 (08:13→20:24)
[2018-01-19] MEDS: SENNOSIDES/DOCUSATE SODIUM TAB PO SCH ×2 (08:13→20:23)
[2018-01-19] MEDS: ENOXAPARIN 40 MG/0.4 ML SYR SC SCH (08:15)
[2018-01-19] MEDS: ACETAMINOPHEN 325 MG TAB PO PRN (09:28)
[2018-01-19] MEDS ORDERED: ALBUTEROL 60 PUFFS/8 GM MDI IH PRN (11:56)
--- NOTE | 2018-01-19 14:23 | HOSPPROG ---
Hospitalist Progress Note Assessment/Plan: * COPD exacerbation -nebs + s/p azithro x 5 days * Lung mass with mets -s/p bronch with biopsy - path false negative -CT guided biopsy of lung mass, showing adenocarcinoma, primary lung -PDL and Lung Seq pending - MRI brain negative - Abd CT showing LLL mets (contralateral lung mets), no other evidence of mets * Viral bronchitis - rhinovirus, continue supportive care * Elevated TSH -synthroid started, repeat TSH/T4 in 4-6 weeks as OP * Syncope -suspect vasovagal vs. hypovolemic -ECHO okay * Chin laceration -remove sutures 01/17 * Post-procedure PTX -CXR from 01/17 is stable - Pulmonology following Dispo: Likely tomorrow to homeless long-term, pending improvement in pain and LH Objective: Vital Signs Temp Pulse Resp BP Pulse Ox 37.0 C 77 16 110/63 89 L 01/19/18 07:34 01/19/18 07:34 01/19/18 08:23 01/19/18 07:34 01/19/18 08:23 Microbiology 01/11/18 15:15 Gram Stain - Final Bronchial Washing - Right Lobe Bronchial Culture - Final 01/11/18 15:15 Mycobacterial Smear (SOLOMON) - Final Lung - Right Lobe Laboratory Results 01/12/18 04:15 01/18/18 01/19/18 01/20/18 05:59 05:59 05:59 Intake Total 300 700 Balance 300 700 PT 13.5 SEC (12.0-15.0) 01/16/18 08:45 INR 1.01 (0.83-1.16) 01/16/18 08:45 ICD10 Worksheet Patient Problems: Problems Problem Status Onset Bronchitis Acute Chin laceration Acute Pneumonia Acute Syncope Acute
[2018-01-19] MEDS: TAMSULOSIN HCL 0.4 MG CAP PO SCH (20:23)
[2018-01-19] MEDS: ZOLPIDEM TARTRATE 5 MG TAB PO PRN (22:40)
[2018-01-19] MEDS: CALCIUM CARBONATE 500 MG CHEWABLE TAB PO PRN (22:41)
[2018-01-20] MEDS: LEVOTHYROXINE 75 MCG TAB PO SCH (05:54)
[2018-01-20] MEDS: oxyCODONE IR 5 MG TAB PO PRN (05:54)
[2018-01-20 09:13] VITALS: BP 96/67
[2018-01-20] MEDS: FLUTICASONE/SALMETER 250/50MCG DISKUS IH SCH ×2 (09:26→09:34)
[2018-01-20] MEDS: IPRATROPIUM/ALBUTEROL 3 ML DEYVIAL IH PRN (09:48)
[2018-01-20] MEDS: ENOXAPARIN 40 MG/0.4 ML SYR SC SCH (10:57)
[2018-01-20] MEDS: IPRATROPIUM 0.03% NASAL SPRAY EACHNARE SCH (11:46)
[2018-01-20] MEDS: SENNOSIDES/DOCUSATE SODIUM TAB PO SCH (11:47)
--- NOTE | 2018-01-20 13:06 | PDDCSUM ---
Discharge Summary Discharge Summary: Date of Admission: 01/11/2018 Date of Discharge: 01/20/2018 Consults: Oncology, Pulmonology Procedures: Lung Mass Biopsy, Bronchoscopy Followup: Oncology Hospital Course Problem List: * Lung mass with mets -s/p bronch with biopsy - path false negative -CT guided biopsy of lung mass, showing adenocarcinoma, primary lung - PDL and Lung Seq pending - MRI brain negative - Abd CT showing LLL mets (contralateral lung mets), no other evidence of mets - Patient to f/u with oncology as outpatient for PET, plan for chemotherapy * COPD exacerbation -Continue PRN Albuterol as OP, s/p azithro x 5 days (patient refused steroids ) * Viral bronchitis - rhinovirus, continue supportive care * Elevated TSH -synthroid started, repeat TSH/T4 in 4-6 weeks as OP * Syncope -suspect vasovagal vs. hypovolemic -ECHO okay * Chin laceration -remove sutures 01/17 * Post-procedure PTX - CXR from 01/17 is stable - Pulmonology following Time spent on discharge was >35 minutes with >50% of time spent on patient education and counseling
--- NOTE | 2018-01-20 18:28 | ASMTLACE ---
[facility]ACE Length of stay for Answers: 7-13 days current admission Acuity / Level of Answers: Yes Care: Did the patient have an inpatient admission? Comorbidities - select Answers: Any tumor (including all that apply lymphoma or leukemia) # of Emergency department Answers: 1-2 visits in the last 6 months Social determinants Answers: Homelessness (street, skilled nursing) Score: 14 Date Signed: 01/20/2018 06:28 PM Electronically Signed By:Stephanie Marcano RN
--- NOTE | 2018-01-20 18:31 | ASMTCMCOM ---
CM Note CM Note Notes: CM Note from Sunday01/19/18 - previously entered under notes in [facility] d/t [employer] downtime: Reviewed chart, spoke with Dr. Lewis and GRADY Drake regarding discharge plan of care, pt's progress. Per GRADY Drake, pt should be ready for discharge today. Discharge orders written. Pt with several complaints and concerns. Dr. Lewis met with pt and discussed concerns at length. [facility]. Per prior notes, CM has spoken with Mehdi, the pt's case operator at the [facility]. Mehdi agrees to give pt a bed at the [facility] the noc of discharge. CM to arrange for a bus pass or Medicaid transport on pt's behalf. Update provided to GRADY Drake. CM will continue to follow. Discharge Plan: [facility] Sunday01/20/18 Date Signed: 01/20/2018 06:30 PM Electronically Signed By:Stephanie Marcano RN
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
== END 2018-01-20 15:35 | disposition home or self-care (01) | DRG 136 ==
LOC: EDUNIT# → F3N 08:05 → OBSVTOIN 01-11 14:35 → F1N 01-13 17:28
PROVIDERS: ADMIT Family Medicine; ATTEND Family Medicine
PROC: 0BBC8ZX Excision of Right Upper Lung Lobe, Via Natural or Artificial Opening Endoscopic, Diagnostic (ICD-10-PCS; 2018-01-11)
PROC: 0BBF8ZX Excision of Right Lower Lung Lobe, Via Natural or Artificial Opening Endoscopic, Diagnostic (ICD-10-PCS; 2018-01-11)
PROC: 0HQ1XZZ Repair Face Skin, External Approach (ICD-10-PCS; 2018-01-11)
PROC: 0BB Respiratory System, Excision (ICD-10-PCS; principal; 2018-01-16 14:46)
DX: C34.01 Malignant neoplasm of right main bronchus (principal); J44.1 Chronic obstructive pulmonary disease with (acute) exacerbation; J44.0 Chronic obstructive pulmonary disease with (acute) lower respiratory infection; J20.6 Acute bronchitis due to rhinovirus; J18.9 Pneumonia, unspecified organism; C78.02 Secondary malignant neoplasm of left lung; S01.81XA Laceration without foreign body of other part of head, initial encounter; W19.XXXA Unspecified fall, initial encounter; J95.811 Postprocedural pneumothorax; N40.0 Benign prostatic hyperplasia without lower urinary tract symptoms; G62.9 Polyneuropathy, unspecified; E03.9 Hypothyroidism, unspecified; Z87.891 Personal history of nicotine dependence; Z59.0 Homelessness
CPT/HCPCS: 84481-90; 84484-PO; 96365; 96366; A9585; G0378; J0690; J1650; J1956; J2250; J2310; J3010; Q9967

== ENCOUNTER 2018-01-27 13:26 | Emergency (ER) | payer MEDICAID ==
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
[2018-01-27] MEDS ORDERED: IPRATROPIUM/ALBUTEROL 3 ML DEYVIAL IH ONE (14:08)
[2018-01-27] MEDS ORDERED: NS 1,000 ML IV ONE (14:09)
[2018-01-27] MEDS ORDERED: ACETAMINOPHEN 325 MG TAB PO ONE (14:27)
[2018-01-27 14:28] LABS: PLATELET COUNT 481 10^3/uL (150-400)
[2018-01-27 16:26] VITALS: BP 106/68
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
== END 2018-01-27 16:23 | disposition home or self-care (01) ==
DX: J20.8 Acute bronchitis due to other specified organisms (principal); C34.91 Malignant neoplasm of unspecified part of right bronchus or lung; F17.200 Nicotine dependence, unspecified, uncomplicated; Z59.0 Homelessness